=== PATIENT | male | born 1965 | race Caucasian/White ===

== ENCOUNTER 2020-12-29 02:58 | Observation (INO) ==
[2020-12-29 03:36] LABS: Basophils # (auto) 0.03 K/uL (0-0.2); Basophils % (auto) 0.3 %; Eosinophils # (auto) 0.22 K/uL (0-0.5); Eosinophils % (auto) 2.2 %; Hematocrit (blood only) 44.4 % (42-52); Hemoglobin 15.3 g/dL (14.0-18.0); Immature Granulocytes # (auto) 0.03 K/uL (0.00-0.02); Immature Granulocytes % (auto) 0.3 %; Lymphocytes # (auto) 1.92 K/uL (1.2-3.4); Lymphocytes % (auto) 19.6 %; Mean Corpuscular Hgb Conc 34.5 g/dL (32-36); Mean Corpuscular Volume 89.9 fL (80-100); Mean Platelet Volume 10.7 fL (7.4-10.4); Monocytes # (auto) 0.82 K/uL (0.11-0.59); Monocytes % (auto) 8.4 %; Neutrophils # (auto) 6.79 K/uL (1.4-6.5); Neutrophils % (auto) 69.2 %; Platelet Count 249 K/uL (130-400); RDW Coefficient of Variation 12.3 % (11.5-14.5); RDW Standard Deviation 40.5 fL (36.4-46.3); Red Blood Count 4.94 M/uL (4.7-6.1); White Blood Count 9.81 K/uL (4.8-10.8)
[2020-12-29] MEDS ORDERED: ONDANSETRON INJ 2 MG/ML 2 ML VIAL ONE ×2 (03:37→13:13)
[2020-12-29] MEDS ORDERED: MoRPHine SULFATE 4 MG/ML 1 ML CARP\\VIAL IV STA (03:50)
[2020-12-29 03:53] LABS: Albumin Level 3.6 gm/dl (3.4-5.0); BUN Creatinine Ratio 14.7 (10-20); Calcium 8.7 mg/dl (8.5-10.1); Creatinine Clr Calc Pharmacy 77.1 ml/min; Est GFR (African American) 75.8 ml/min; Est GFR (Non-African American) 65.4 ml/min; Potassium 3.8 mmol/L (3.5-5.1)
[2020-12-29 03:56] LABS: Bilirubin,Total 0.4 mg/dl (0.2-1); Globulin 3.7 gm/dl (2.5-4.0); Total Protein 7.3 gm/dl (6.4-8.2)
[2020-12-29] MEDS ORDERED: LACTATED RINGER'S 1,000 ML IV SCH ×2 (06:45→10:09)
--- NOTE | 2020-12-29 06:54 | Emergency Department Note ---
Impression & Plan Acute cholecystitis The patient will be admitted by general surgery for cholecystectomy ED Provider Note NAME: MARITZA RUIZ AGE: 55 SEX: M ARRIVES VIA: Walk-In INFORMANT: Patient and his ED PROVIDER(S): Marley Chang DO CHIEF COMPLAINT: Right upper quadrant pain PLAN: Disposition: Admit to general surgery Condition: Stable MEDICAL DECISION MAKING: This is a 55-year-old male patient who presents to the emergency department complaining of right upper quadrant abdominal pain, nausea and vomiting. Patient has no history of gallstones. He developed significant pain and nausea around 11 PM this evening and upon arrival here in the emergency department bega n to vomit. Ultrasound shows evidence of acute gallbladder wall thickening, pericholecystic fluid and evidence of acute cholecystitis. Patient was given IV analgesia and antiemetics. I discussed the case with Dr. Woods. He will be admitted to the hospital for acute cholecystectomy. Triage Nursing notes reviewed and agree with them. Additional history obtained from Prior medical records reviewed Vital Signs: reviewed and remarkable for hypertension Differential diagnosis: Acute cholecystitis, cholelithiasis, choledocholithiasis, pancreatitis ER treatment provided: IV Zofran IV morphine IV lactated Ringer's Diagnostics interpreted by me: ECG: Normal sinus rhythm at a rate of 89 with a right bundle branch block. There is no ST segment elevation or signs of ischemia. QTC is 462 ms. This is unchanged from December 11. Cardiac Monitoring: Normal sinus rhythm at a rate of 90. Laboratory studies: See below Imaging studies: As per stat read Ultrasound right upper quadrant: Cholelithiasis with mild gallbladder wall thickening measuring 4 mm. Trace pericholecystic fluid. The common bile duct measures 4 mm. Findings are concerning for acute cholecystitis in the appropriate clinical setting. Liver cyst measuring 2.2 x 2.1 x 2.5 cm. Consultation(s): Dr. Woods-General surgery HPI: 55/M arrives for evaluation of right upper quadrant pain. The patient presents to the emergency department complaining of sudden onset of right upper quadrant abdominal pain around 11 PM this evening. Patient has a known history of gallstones. Patient admits that he is not been following a very specific diet. ROS: See above HPI for pertinent positives & negatives. A total of 10 systems reviewed and were otherwise negative. PAST MEDICAL HISTORY:Cough variant asthma; seasonal allergies PAST SURGICAL HISTORY:See Below FAMILY HISTORY:See Below SOCIAL HISTORY:Patient is a primary care physician; he lives with his . HOME MEDICATIONS:See Below ALLERGIES:See Below VITALS:See Below PHYSICAL EXAMINATION: HEENT: Head - normocephalic and atraumatic. Pupils are equal, round, and r eactive to light. Extraocular eye muscles are intact, and sclera are anicteric. Nose - moist nasal mucosa without discharge. Mouth - moist buccal mucosa. Oropharynx is nonerythematous and there is no tonsillar exudate or edema noted. Neck: Supple; no cervical lymphadenopathy Heart: Regular rate and rhythm. There is a normal S1 and S2 with no murmurs, clicks, or gallops appreciated. Lungs: Clear to auscultation bilaterally with no wheezes, rales, or rhonchi. Abdomen: Soft, exquisitely tender to palpation in the right upper quadrant and epigastrium. The abdomen is moderately distended. Hyperactive bowel sounds. There are no palpable pulsatile masses or hepatosplenomegaly. There is no rigidity appreciated. There is slight rebound noted. Extremities: No evidence of cyanosis, clubbing, or edema. There are easily palpable peripheral pulses. Skin: warm and diaphoretic with good turgor and no rashes. ED COURSE: Times/Reassessments: 0330: The patient was evaluated in room before. A complete history and physical was performed. An IV lock was initiated and labs were drawn as above. An order was placed for continuous cardiac monitoring. The patient was in a normal at a rate of 90. The patient was started on a normal saline drip and given 4 mg of IV Zofran for his nausea. He was given IV morphine for his pain. 0445: The patient remained quite uncomfortable on physical exam. He rated his discomfort an 8/10. I offered additional pain medications and anti-nausea medications but he declined. He went for an ultrasound of the right upper quadrant which revealed evidence of acute cholecystitis. I had a lengthy conversation with the patient and his about the results of the ultrasound and planned admission with general surgery. The patient had a twelve-lead EKG as described above. 0635: I discussed the case with Dr. Woods who will admit the patient to the hospital and discuss with Dr. Carroll. Marley Chang, DO Past Med/Surg History Medical History (Updated 12/29/20 @ 11:42 by Keny Coyne MD) Asthma DVT of leg (deep venous thrombosis) Sleep apnea Social History Smoking Status: Never smoker Hx Alcohol Use: No Hx Substance Use: No Preferred Language: Pashto Beliefs That Will Affect Care: Protestant Protestant Beliefs: Oriental Orthodox Current Living Situation: Spouse Feels Safe at Home: Yes Safety Concerns: Feels Safe At This Time Assistive Devices: None Allergies Allergies Allergy/AdvReac Type Severity Reaction Status Date / Time No Known Allergies Allergy Unverified 12/29/20 08:37 Home Meds Home Medications Medication Instructions Recorded Confirmed albuterol sulfate 90 mcg/actuation 2 puff INHALATION Q6H 12/11/20 12/29/20 aerosol inhaler fluticasone furoate 200 1 inh INHALATION DAILY 12/11/20 12/29/20 mcg-vilanterol 25 mcg/dose inhalation powder (Breo Ellipta) aspirin 81 mg tablet 81 mg PO DAILY 12/29/20 12/29/20 Previous Rx's Medication Instructions Recorded oxycodone-acetaminophen 5 mg-325 1 tab PO Q4H PRN #5 tab 12/30/20 mg tablet (Percocet) Results & Data (ED) Vital Signs Vital Signs - 24 hr 12/29/20 03:00 12/29/20 03:13 12/29/20 03:25 Temperature 36.6 C Temperature Source Temporal Artery Scan Pulse Rate 89 85 Pulse Rate [Right Foot] 80 Pulse Rhythm Regular Pulse Rhythm [Right Foot] Regular Pulse Strength Normal Pulse Strength [Right Foot] Normal Respiratory Rate 20 18 24 Respiratory Effort / Characteristics Non-Labored Spontaneous Non-Labored Respiratory Depth Normal Normal Respiratory Pattern Regular Blood Pressure 150/107 H 150/103 H Blood Pressure [Left Arm] 150/103 H Blood Pressure Mean 121 118 Blood Pressure Mean [Left Arm] 118 Blood Pressure Position Sitting Blood Pressure Position [Left Arm] Sitting Pulse Oximetry 98 97 97 Oxygen Delivery Method Room Air Room Air Sepsis Recent Fever Within 48 Hours No Sepsis New/Unexplained Change in Mental Status N/A Sepsis Action Taken by Nursing No Action Required 12/29/20 04:00 Temperature Temperature Source Pulse Rate 92 H Pulse Rate [Right Foot] Pulse Rhythm Pulse Rhythm [Right Foot] Pulse Strength Pulse Strength [Right Foot] Respiratory Rate 19 Respiratory Effort / Characteristics Respiratory Depth Respiratory Pattern Blood Pressure 133/92 Blood Pressure [Left Arm] Blood Pressure Mean 105 Blood Pressure Mean [Left Arm] Blood Pressure Position Blood Pressure Position [Left Arm] Pulse Oximetry 97 Oxygen Delivery Method Sepsis Recent Fever Within 48 Hours Sepsis New/Unexplained Change in Mental Status Sepsis Action Taken by Nursing Laboratory Data Result diagrams: 12/29/20 Unknown 12/29/20 Unknown Lab Results 12/29/20 12/29/20 12/29/20 Range/Units 07:34 07:45 Unknown WBC 9.81 (4.8-10.8) K/uL RBC 4.94 (4.7-6.1) M/uL Hgb 15.3 (14.0-18.0) g/dL Hct 44.4 (42-52) % MCV 89.9 (80-100) fL MCH 31.0 (25-34) pg MCHC 34.5 (32-36) g/dL RDW Std Deviation 40.5 (36.4-46.3) fL RDW Coeff of Mary 12.3 (11.5-14.5) % Plt Count 249 (130-400) K/uL MPV 10.7 H (7.4-10.4) fL Immature Gran % (Auto) 0.3 % Neut % (Auto) 69.2 % Lymph % (Auto) 19.6 % Whitfield % (Auto) 8.4 % Eos % (Auto) 2.2 % Baso % (Auto) 0.3 % Neut # (Auto) 6.79 H (1.4-6.5) K/uL Lymph # (Auto) 1.92 (1.2-3.4) K/uL Whitfield # (Auto) 0.82 H (0.11-0.59) K/uL Eos # (Auto) 0.22 (0-0.5) K/uL Baso # (Auto) 0.03 (0-0.2) K/uL Immature Gran # (Auto) 0.03 H (0.00-0.02) K/uL Sodium (136-145) mmol/L Potassium (3.5-5.1) mmol/L Chloride (98-107) mmol/L Carbon Dioxide (21-32) mmol/L Anion Gap (3-11) BUN (7-18) mg/dl Creatinine (0.6-1.4) mg/dl Est Cr Clr Drug Dosing ml/min Est GFR ( Amer) ml/min Est GFR (Non-Af Amer) ml/min BUN/Creatinine Ratio (10-20) Glucose (70-99) mg/dl Calcium (8.5-10.1) mg/dl Total Bilirubin (0.2-1) mg/dl AST (15-37) U/L ALT (12-78) U/L Alkaline Phosphatase (45-117) U/L Total Protein (6.4-8.2) gm/dl Albumin (3.4-5.0) gm/dl Globulin (2.5-4.0) gm/dl Albumin/Globulin Ratio (0.9-2) Lipase (73-393) U/L Urine Color Yellow Urine Appearance Clear (Clear) Urine pH 5.5 (4.5-7.5) Ur Specific Trent 1.024 (1.000-1.030) Urine Protein Negative (Negative) Urine Glucose (UA) Negative (Negative) Urine Ketones Trace H (Negative) Urine Blood Negative (Negative) Urine Nitrite Negative (Negative) Urine Bilirubin Negative (Negative) Urine Urobilinogen Negative (Negative) Ur Leukocyte Esterase Negative (Negative) COVID-19 Eval Order Covid19 at [facility] 12/29/20 Range/Units Unknown WBC (4.8-10.8) K/uL RBC (4.7-6.1) M/uL Hgb (14.0-18.0) g/dL Hct (42-52) % MCV (80-100) fL MCH (25-34) pg MCHC (32-36) g/dL RDW Std Deviation (36.4-46.3) fL RDW Coeff of Mary (11.5-14.5) % Plt Count (130-400) K/uL MPV (7.4-10.4) fL Immature Gran % (Auto) % Neut % (Auto) % Lymph % (Auto) % Whitfield % (Auto) % Eos % (Auto) % Baso % (Auto) % Neut # (Auto) (1.4-6.5) K/uL Lymph # (Auto) (1.2-3.4) K/uL Whitfield # (Auto) (0.11-0.59) K/uL Eos # (Auto) (0-0.5) K/uL Baso # (Auto) (0-0.2) K/uL Immature Gran # (Auto) (0.00-0.02) K/uL Sodium 140 (136-145) mmol/L Potassium 3.8 (3.5-5.1) mmol/L Chloride 106 (98-107) mmol/L Carbon Dioxide 27 (21-32) mmol/L Anion Gap 7.0 (3-11) BUN 18 (7-18) mg/dl Creatinine 1.22 (0.6-1.4) mg/dl Est Cr Clr Drug Dosing 77.1 ml/min Est GFR ( Amer) 75.8 ml/min Est GFR (Non-Af Amer) 65.4 ml/min BUN/Creatinine Ratio 14.7 (10-20) Glucose 114 H (70-99) mg/dl Calcium 8.7 (8.5-10.1) mg/dl Total Bilirubin 0.4 (0.2-1) mg/dl AST 25 (15-37) U/L ALT 30 (12-78) U/L Alkaline Phosphatase 47 (45-117) U/L Total Protein 7.3 (6.4-8.2) gm/dl Albumin 3.6 (3.4-5.0) gm/dl Globulin 3.7 (2.5-4.0) gm/dl Albumin/Globulin Ratio 1.0 (0.9-2) Lipase 134 (73-393) U/L Urine Color Urine Appearance (Clear) Urine pH (4.5-7.5) Ur Specific Trent (1.000-1.030) Urine Protein (Negative) Urine Glucose (UA) (Negative) Urine Ketones (Negative) Urine Blood (Negative) Urine Nitrite (Negative) Urine Bilirubin (Negative) Urine Urobilinogen (Negative) Ur Leukocyte Esterase (Negative) COVID-19 Eval Order Administered Medications Discontinued Medications Acetaminophen (Acetaminophen 325 Mg Tab) 650 mg PO Q4H PRN PRN Reason: Pain Stop: 01/28/21 23:01 Last Admin: 12/30/20 05:21 Dose: 650 mg Documented by: [id number] Bupivacaine HCl (Bupivacaine 0.25% 30 Ml Vial) Confirm Administered Dose 30 ml .ROUTE .[facility]-MED ONE Stop: 12/29/20 13:11 Last Admin: 12/29/20 14:01 Dose: 30 ml Documented by: [id number] Epinephrine HCl (Epinephrine Inj 1 Mg/Ml Amp) Confirm Administered Dose 1 mg .ROUTE .STK-MED ONE Stop: 12/29/20 13:11 Last Admin: 12/29/20 14:00 Dose: 0.15 mg Documented by: [id number] Lactated Ringer's (Lr) 1,000 mls @ 125 mls/hr IV .Q8H [facility] Stop: 01/28/21 06:44 Last Infusion: 12/29/20 10:30 Dose: 0 mls/hr Documented by: [id number] Admin: 12/29/20 07:36 Dose: 125 mls/hr Documented by: [id number] Lactated Ringer's (Lr) 1,000 mls @ 100 mls/hr IV .Q10H [facility] Stop: 01/28/21 10:08 Last Infusion: 12/29/20 16:36 Dose: 0 mls/hr Documented by: [id number] Admin: 12/29/20 10:44 Dose: 100 mls/hr Documented by: [id number] Ampicillin Sodium/Sulbactam Sodium 3,000 mg/ Sodium Chloride 108 mls @ 200 mls/hr IV Q6H [facility]; Protocol Stop: 01/08/21 10:29 Last Infusion: 12/30/20 11:20 Dose: 0 mls/hr Documented by: [id number] Admin: 12/30/20 10:36 Dose: 200 mls/hr Documented by: [id number] Infusion: 12/30/20 05:54 Dose: 0 mls/hr Documented by: [id number] Admin: 12/30/20 05:21 Dose: 200 mls/hr Documented by: [id number] Infusion: 12/29/20 23:04 Dose: 0 mls/hr Documented by: [id number] Admin: 12/29/20 22:31 Dose: 200 mls/hr Documented by: [id number] Infusion: 12/29/20 17:11 Dose: 0 mls/hr Documented by: [id number] Admin: 12/29/20 16:38 Dose: 200 mls/hr Documented by: [id number] Infusion: 12/29/20 11:17 Dose: 0 mls/hr Documented by: [id number] Admin: 12/29/20 10:44 Dose: 200 mls/hr Documented by: [id number] Morphine Sulfate (Morphine Sulfate 4 Mg/Ml 1 Ml Carp\Vial) 4 mg IV NOW STA Stop: 12/29/20 03:51 Last Admin: 12/29/20 03:56 Dose: 4 mg Documented by: [id number] Ondansetron HCl (Ondansetron Inj 2 Mg/Ml 2 Ml Vial) Confirm Administered Dose 4 mg .ROUTE .STK-MED ONE Stop: 12/29/20 03:38 Last Admin: 12/29/20 03:41 Dose: 4 mg Documented by: [id number] Imaging Data Radiologist's Impression: Gallbladder Ultrasound 12/29/20 03:51 ULTRASOUND RIGHT UPPER QUADRANT ABDOMEN CLINICAL HISTORY: Vomiting. Right upper quadrant abdominal pain. COMPARISON STUDY: Abdominal ultrasound dated 12/11/2020 TECHNIQUE: Real-time, grayscale, and color flow sonography of the right upper quadrant of the abdomen was performed. Images are reviewed in the transverse and longitudinal planes. FINDINGS: Liver: The liver is normal in size and echotexture. There is no intrahepatic biliary ductal dilatation. The main portal vein is patent. A 2.5 cm hepatic cyst is incidentally noted. Gallbladder: There is a 2 cm shadowing calculus in the region of the gallbladder neck as well as additional smaller stones and biliary sludge. The gallbladder is distended. The gallbladder wall appears thickened and edematous, measuring up to 4 mm. There is trace pericholecystic fluid. A sonographic Trevino's sign is equivocal. Foci of adenomyomatosis are noted. The common bile duct measures up to 0.5 cm in diameter. Pancreas: Visualized portions of the pancreatic head are normal in appearance. The majority of the pancreas was not visualized due to overlying bowel gas. Right kidney: Survey images of the right kidney demonstrate normal size and echotexture. There is no hydronephrosis. Ascites: None. IMPRESSION: Cholelithiasis and biliary sludge with sonographic evidence of acute cholecystitis. Surgical consultation is advised. ACT 112: Negative or not required by law. Electronically signed by: Joel Yanez M.D. 12/29/2020 7:14 AM Chest X-Ray 12/29/20 06:44 SINGLE VIEW CHEST CLINICAL HISTORY: Right upper quadrant abdominal pain. Acute cholecystitis. Preoperative assessment. FINDINGS: An AP, portable, upright chest radiograph is obtained. No prior studies are available for comparison at the time of dictation. The cardiomediastinal silhouette is unremarkable. The lungs and pleural spaces are clear. No pneumothorax is seen. The bony thorax is grossly intact. IMPRESSION: No active disease in the chest. ACT 112: Negative or not required by law. Electronically signed by: Joel Yanez M.D. 12/29/2020 7:48 AM Discharge Plan Visit Data Chief Complaint: Abdominal Pain Stated Complaint: ABD PAIN,NAUSEA,GALL STONES ED Provider: Marley Chang Discharge Problem: Acute cholecystitis Patient Disposition: Admitted As Inpatient Discharge Instructions Interventions: ED Discharge Assessment Last Done: 12/29/20 09:48
--- NOTE | 2020-12-29 07:15 | Ultrasound Report ---
ULTRASOUND RIGHT UPPER QUADRANT ABDOMEN CLINICAL HISTORY: Vomiting. Right upper quadrant abdominal pain. COMPARISON STUDY: Abdominal ultrasound dated 12/11/2020 TECHNIQUE: Real-time, grayscale, and color flow sonography of the right upper quadrant of the abdomen was performed. Images are reviewed in the transverse and longitudinal planes. FINDINGS: Liver: The liver is normal in size and echotexture. There is no intrahepatic biliary ductal dilatatio n. The main portal vein is patent. A 2.5 cm hepatic cyst is incidentally noted. Gallbladder: There is a 2 cm shadowing calculus in the region of the gallbladder neck as well as brittney tional smaller stones and biliary sludge. The gallbladder is distended. The gallbladder wall appears thickened and edematous, measuring up to 4 mm. There is trace pericholecystic fluid. A sonographic Mu rphy's sign is equivocal. Foci of adenomyomatosis are noted. The common bile duct measures up to 0.5 cm in diameter. Pancreas: Visualized portions of the pancreatic head are normal in appearance. The majority of the pa ncreas was not visualized due to overlying bowel gas. Right kidney: Survey images of the right kidney demonstrate normal size and echotexture. There is no hydronephrosis. Ascites: None. IMPRESSION: Cholelithiasis and biliary sludge with sonographic evidence of acute cholecystitis. Surgi terry consultation is advised. ACT 112: Negative or not required by law. Electronically signed by: Joel Yanez M.D. 12/29/2020 7:14 AM
--- NOTE | 2020-12-29 07:50 | XRay Report ---
SINGLE VIEW CHEST CLINICAL HISTORY: Right upper quadrant abdominal pain. Acute cholecystitis. Preoperative assessment. FINDINGS: An AP, portable, upright chest radiograph is obtained. No prior studies are available for c omparison at the time of dictation. The cardiomediastinal silhouette is unremarkable. The lungs and pleural spaces are clear. No pneumothorax is seen. The bony thorax is grossly intact. IMPRESSION: No active disease in the chest. ACT 112: Negative or not required by law. Electronically signed by: Joel Yanez M.D. 12/29/2020 7:48 AM
[2020-12-29 08:03] LABS: Appearance Urine Clear (Clear); Bilirubin Urine Negative (Negative); Blood Urine Negative (Negative); Color Urine Yellow; Glucose Urine UA Negative (Negative); Ketones Urine Trace (Negative); Leukocyte Esterase Urine Negative (Negative); Nitrite Urine Negative (Negative); Protein Urine Negative (Negative); Specific Gravity Urine 1.024 (1.000-1.030); Urobilinogen Urine Negative (Negative); pH Urine 5.5 (4.5-7.5)
--- NOTE | 2020-12-29 09:52 | History & Physical Report ---
Date of Service December 29, 2020 Assessment & Plan (1) Acute cholecystitis: Plan: Acute calculous cholecystitis 55 year-old male with sudden RUQ abdominal pain, bloating, nausea, and vomiting begging last evening. History of similar attacks and was scheduled for elective cholecystectomy with Dr. Nixon in January. NO leukocytosis. T. bili and lfts wnl. US showing stone at gallbladder neck with gallbladder wall thickening. Plan: Dr. Carroll discussed ultrasound findings with patient and given recurrent attacks recommend cholecystectomy. Discussed laparoscopic approach, risks including but no limited to bleeding, infection, bile duct injury, bile leak, injury to surrounding organs/tissues, blood clots. Discussed expected recovery and restrictions. Informed consent obtained for laparoscopic cholecystectomy today keep NPO will order SCDs given history of DVT expected postop stay overnight and likely home tomorrow Dr. Carroll has seen and examined patient, please see addendum for further recommendations/plan. History of Present Illness Chief Complaint: Abdominal pain, nausea, and vomiting Primary Care Provider: DO Dr. Timothy Mccoy presented to emergency department last evening with complaint of sudden RUQ abdominal pain with associated nausea and vomiting. He states he has had similar episodes of RUQ abdominal pain in the past and was in the emergency room in October and saw Dr. Nixon in the office and scheduled for elective laparoscopic cholecystectomy January 23. He states the pain was sudden last evening with associated nausea and bloating with belching and flatus. 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 History of sleep apnea but not on cpap and also history of asthmas with a chronic cough. No abdominal surgeries. No current blood thinning agents other than 81 mg of aspirin daily. Family history of DVT in sister ( control and smoker) and Father (postop setting). Allergies Allergy/AdvReac Type Severity Reaction Status Date / Time No Known Allergies Allergy Unverified 12/29/20 08:37 Home Medications Medication Instructions Recorded Confirmed Type albuterol sulfate 90 mcg/actuation 2 puff INHALATION Q6H 12/11/20 12/29/20 History aerosol inhaler fluticasone furoate 200 1 inh INHALATION DAILY 12/11/20 12/29/20 History mcg-vilanterol 25 mcg/dose inhalation powder (Breo Ellipta) aspirin 81 mg tablet 81 mg PO DAILY 12/29/20 12/29/20 History Past Med/Surg History Medical History (Updated 12/29/20 @ 11:42 by Keny Coyne MD) Asthma DVT of leg (deep venous thrombosis) Sleep apnea Social History Smoking Status: Never smoker Hx Alcohol Use: No Hx Substance Use: No Preferred Language: Irish Beliefs That Will Affect Care: Samaritan Samaritan Beliefs: Presybeterian Current Living Situation: Spouse Feels Safe at Home: Yes Safety Concerns: Feels Safe At This Time Assistive Devices: Glasses Review of Systems Review of Systems: All systems reviewed & are unremarkable except as noted in HPI & below Physical Exam Constitutional: well developed and well nourished; no acute distress and not ill appearing Respiratory: normal respiratory effort, lungs clear to auscultation Cardiovascular: RRR, no murmur, no edema Gastrointestinal (Abdomen): Inspection/Auscultation: abdomen normal to inspection; abdomen not distended Percussion/Palpation: + abdomen tender (R UQ) and abdomen soft; no guarding and abdomen not rigid Skin: no rashes, warm and dry Psychiatric: A+Ox3, euthymic affect Results & Data Results & Data ([facility]) Vital Signs (Past 12 Hours) Vital Signs Temp Pulse Pulse Resp BP BP Pulse Ox 12/29/20 09:48 91 H 18 124/73 95 12/29/20 04:00 92 H 19 133/92 97 12/29/20 03:25 85 24 150/103 H 97 12/29/20 03:13 80 18 150/103 H 97 12/29/20 03:00 36.6 C 89 20 150/107 H 98 Laboratory Results 12/29/20 12/29/20 12/29/20 Range/Units Unknown Unknown 07:45 WBC 9.81 (4.8-10.8) K/uL RBC 4.94 (4.7-6.1) M/uL Hgb 15.3 (14.0-18.0) g/dL Hct 44.4 (42-52) % MCV 89.9 (80-100) fL MCH 31.0 (25-34) pg MCHC 34.5 (32-36) g/dL RDW Std Deviation 40.5 (36.4-46.3) fL RDW Coeff of Amry 12.3 (11.5-14.5) % Plt Count 249 (130-400) K/uL MPV 10.7 H (7.4-10.4) fL Immature Gran % (Auto) 0.3 % Neut % (Auto) 69.2 % Lymph % (Auto) 19.6 % Osborne % (Auto) 8.4 % Eos % (Auto) 2.2 % Baso % (Auto) 0.3 % Neut # (Auto) 6.79 H (1.4-6.5) K/uL Lymph # (Auto) 1.92 (1.2-3.4) K/uL Osborne # (Auto) 0.82 H (0.11-0.59) K/uL Eos # (Auto) 0.22 (0-0.5) K/uL Baso # (Auto) 0.03 (0-0.2) K/uL Immature Gran # (Auto) 0.03 H (0.00-0.02) K/uL Sodium 140 (136-145) mmol/L Potassium 3.8 (3.5-5.1) mmol/L Chloride 106 (98-107) mmol/L Carbon Dioxide 27 (21-32) mmol/L Anion Gap 7.0 (3-11) BUN 18 (7-18) mg/dl Creatinine 1.22 (0.6-1.4) mg/dl Est Cr Clr Drug Dosing 77.1 ml/min Est GFR ( Amer) 75.8 ml/min Est GFR (Non-Af Amer) 65.4 ml/min BUN/Creatinine Ratio 14.7 (10-20) Glucose 114 H (70-99) mg/dl Calcium 8.7 (8.5-10.1) mg/dl Total Bilirubin 0.4 (0.2-1) mg/dl AST 25 (15-37) U/L ALT 30 (12-78) U/L Alkaline Phosphatase 47 (45-117) U/L Total Protein 7.3 (6.4-8.2) gm/dl Albumin 3.6 (3.4-5.0) gm/dl Globulin 3.7 (2.5-4.0) gm/dl Albumin/Globulin Ratio 1.0 (0.9-2) Lipase 134 (73-393) U/L Urine Color Yellow Urine Appearance Clear (Clear) Urine pH 5.5 (4.5-7.5) Ur Specific [place] 1.024 (1.000-1.030) Urine Protein Negative (Negative) Urine Glucose (UA) Negative (Negative) Urine Ketones Trace H (Negative) Urine Blood Negative (Negative) Urine Nitrite Negative (Negative) Urine Bilirubin Negative (Negative) Urine Urobilinogen Negative (Negative) Ur Leukocyte Esterase Negative (Negative) COVID-19 Eval Order SARS-CoV-2 (PCR) (Negative) 12/29/20 12/29/20 Range/Units 07:34 07:34 WBC (4.8-10.8) K/uL RBC (4.7-6.1) M/uL Hgb (14.0-18.0) g/dL Hct (42-52) % MCV (80-100) fL MCH (25-34) pg MCHC (32-36) g/dL RDW Std Deviation (36.4-46.3) fL RDW Coeff of Mary (11.5-14.5) % Plt Count (130-400) K/uL MPV (7.4-10.4) fL Immature Gran % (Auto) % Neut % (Auto) % Lymph % (Auto) % Osborne % (Auto) % Eos % (Auto) % Baso % (Auto) % Neut # (Auto) (1.4-6.5) K/uL Lymph # (Auto) (1.2-3.4) K/uL Osborne # (Auto) (0.11-0.59) K/uL Eos # (Auto) (0-0.5) K/uL Baso # (Auto) (0-0.2) K/uL Immature Gran # (Auto) (0.00-0.02) K/uL Sodium (136-145) mmol/L Potassium (3.5-5.1) mmol/L Chloride (98-107) mmol/L Carbon Dioxide (21-32) mmol/L Anion Gap (3-11) BUN (7-18) mg/dl Creatinine (0.6-1.4) mg/dl Est Cr Clr Drug Dosing ml/min Est GFR ( Amer) ml/min Est GFR (Non-Af Amer) ml/min BUN/Creatinine Ratio (10-20) Glucose (70-99) mg/dl Calcium (8.5-10.1) mg/dl Total Bilirubin (0.2-1) mg/dl AST (15-37) U/L ALT (12-78) U/L Alkaline Phosphatase (45-117) U/L Total Protein (6.4-8.2) gm/dl Albumin (3.4-5.0) gm/dl Globulin (2.5-4.0) gm/dl Albumin/Globulin Ratio (0.9-2) Lipase (73-393) U/L Urine Color Urine Appearance (Clear) Urine pH (4.5-7.5) Ur Specific [place] (1.000-1.030) Urine Protein (Negative) Urine Glucose (UA) (Negative) Urine Ketones (Negative) Urine Blood (Negative) Urine Nitrite (Negative) Urine Bilirubin (Negative) Urine Urobilinogen (Negative) Ur Leukocyte Esterase (Negative) COVID-19 Eval Order Covid19 at [facility] SARS-CoV-2 (PCR) NEGATIVE (Negative) Diagnostic Findings ULTRASOUND RIGHT UPPER QUADRANT ABDOMEN CLINICAL HISTORY: Vomiting. Right upper quadrant abdominal pain. COMPARISON STUDY: Abdominal ultrasound dated 12/11/2020 TECHNIQUE: Real-time, grayscale, and color flow sonography of the right upper quadrant of the abdomen was performed. Images are reviewed in the transverse and longitudinal planes. FINDINGS: Liver: The liver is normal in size and echotexture. There is no intrahepatic biliary ductal dilatation. The main portal vein is patent. A 2.5 cm hepatic cyst is incidentally noted. Gallbladder: There is a 2 cm shadowing calculus in the region of the gallbladder neck as well as additional smaller stones and biliary sludge. The gallbladder is distended. The gallbladder wall appears thickened and edematous, measuring up to 4 mm. There is trace pericholecystic fluid. A sonographic Trevino's sign is equivocal. Foci of adenomyomatosis are noted. The common bile duct measures up to 0.5 cm in diameter. Pancreas: Visualized portions of the pancreatic head are normal in appearance. The majority of the pancreas was not visualized due to overlying bowel gas. Right kidney: Survey images of the right kidney demonstrate normal size and echotexture. There is no hydronephrosis. Ascites: None. IMPRESSION: Cholelithiasis and biliary sludge with sonographic evidence of acute cholecystitis. Surgical consultation is advised. Code Status & VTE Plan VTE Prophylaxis Plan VTE Prophylaxis will be ordered: Yes Supervising Physician Co-Signing Physician Notes I saw and examined the patient with Pricila Hyatt PA-C, and agree with her assessment and plan. 55-year-old gentleman with acute cholecystitis, we will take him to the operating room for laparoscopic cholecystectomy at the earliest convenience.
[2020-12-29] MEDS ORDERED: MoRPHine SULFATE 4 MG/ML 1 ML CARP\\VIAL IV PRN (10:09)
[2020-12-29] MEDS ORDERED: ONDANSETRON INJ 2 MG/ML 2 ML VIAL IV PRN ×2 (10:09→11:40)
[2020-12-29] MEDS ORDERED: MoRPHine SULFATE 2 MG/ML CARP IV PRN (10:09)
[2020-12-29] MEDS ORDERED: oxyCODONE/ACETAMINOPHEN 5mg/325mg TAB PO PRN ×2 (10:09)
[2020-12-29] MEDS: AMPICILLIN/SULBACTAM SOD 3,000 MG in 0.9 % SODIUM CHLORIDE 100 ML IV SCH ×3 (10:44→22:31)
[2020-12-29] MEDS ORDERED: ATROPINE SULFATE 0.1 MG/ML 10ML SYR IV PRN (11:40)
[2020-12-29] MEDS ORDERED: ePHEDrine sulfate 50 MG/ML AMP IV PRN (11:40)
[2020-12-29] MEDS ORDERED: fentaNYL citrate 100 MCG/2 ML VIAL IV PRN (11:40)
--- NOTE | 2020-12-29 11:42 | Anesthesiology Consultation ---
Date of Service December 29, 2020 Assessment & Plan (1) Encounter for pre-operative examination: Chart Review Chart Review: Acceptable Risk for Surgery and Patient NOT seen in Pre Admission Testing Consults Requested none ASA ASA2 Proposed Anesthesia Anesthesia Type: General Risk / Benefits Reviewed With: PT / POA / Parent / Guardian, Accepts Plan and Informed Consent Obtained History Surgery Operation Date: 12/29/20 08:20 Proposed Procedures p Laparoscopic Cholecystectomy, Possible Cholangiogram - Robinson Carroll MD Height/Weight Height: 5 ft 9 in Weight: 98 kg Allergies Allergy/AdvReac Type Severity Reaction Status Date / Time No Known Allergies Allergy Unverified 12/29/20 08:37 Medications Home Medications Medication Instructions Recorded Confirmed Last Taken albuterol sulfate 90 mcg/actuation 2 puff INHALATION Q6H 12/11/20 12/29/20 Unknown aerosol inhaler fluticasone furoate 200 1 inh INHALATION DAILY 12/11/20 12/29/20 Unknown mcg-vilanterol 25 mcg/dose inhalation powder (Breo Ellipta) aspirin 81 mg tablet 81 mg PO DAILY 12/29/20 12/29/20 Unknown Active Medications Generic Name Dose Route Start Last Admin Trade Name Freq PRN Reason Stop Dose Admin Lactated Ringer's 1,000 mls @ 100 mls/hr 12/29/20 10:09 12/29/20 10:44 Lr IV 01/28/21 10:08 100 mls/hr .Q10H ALEX Administration Ampicillin Sodium/Sulbactam 108 mls @ 200 mls/hr 12/29/20 10:30 12/29/20 10:44 Sodium 3,000 mg/ Sodium IV 01/08/21 10:29 200 mls/hr Chloride Q6H ALEX Administration Protocol NPO Date Last Intake of Fluids: 12/29/20 Time Last Intake of Fluids: 02:00 Last Intake of Fluids Comment: Water Date Last Intake of Solids: 12/29/20 Time Last Intake of Solids: 00:00 Last Intake of Solids Comment: Piece of toast Past Medical History Medical History (Updated 12/29/20 @ 11:42 by Keny Coyne MD) Asthma DVT of leg (deep venous thrombosis) Sleep apnea Exercise / Class Metabolic Activity II 4-5 Yardwork/Stairs/Walk up hill Past Anesthesia History No Hx of Anesthesia Complications and No Family Hx of Anesthesia Complications History of PONV No Hx of PONV and No Hx of Motion Sickness Social History Smoking Status: Never smoker Hx Alcohol Use: No Hx Substance Use: No Physical Exam Vital Signs Last Vital Signs Temp 36.8 C 12/29/20 10:11 Pulse 76 12/29/20 10:11 Resp 18 12/29/20 10:11 BP 125/79 12/29/20 10:11 Pulse Ox 97 12/29/20 10:11 ENMT Mouth: no dentition abnormality Thyromental Distance: > or= 3.5 Finger Breadths Mallampati Class: II Neck normal visual inspection Respiratory normal respiratory effort Auscultation: lungs clear to auscultation bilaterally Cardiovascular Rate/Rhythm: regular rate and regular rhythm Psychiatric Orientation: alert Testing Laboratory Results 12/29/20 Unknown 12/29/20 Unknown Urine Color Yellow 12/29/20 07:45 Urine Appearance Clear (Clear) 12/29/20 07:45 Urine pH 5.5 (4.5-7.5) 12/29/20 07:45 Ur Specific [place] 1.024 (1.000-1.030) 12/29/20 07:45 Urine Protein Negative (Negative) 12/29/20 07:45 Urine Glucose (UA) Negative (Negative) 12/29/20 07:45 Urine Ketones Trace (Negative) H 12/29/20 07:45 Urine Nitrite Negative (Negative) 12/29/20 07:45 Ur Leukocyte Esterase Negative (Negative) 12/29/20 07:45
[2020-12-29] MEDS ORDERED: EPINEPHrine INJ 1 MG/ML AMP ONE (13:10)
[2020-12-29] MEDS ORDERED: BUPIVACAINE 0.25% 30 ML VIAL ONE (13:10)
[2020-12-29] MEDS ORDERED: DEXAMETHASONE SOD INJ 4 MG/ML VIAL ONE ×2 (13:13→13:39)
[2020-12-29] MEDS ORDERED: ROCURONIUM BROMIDE 10 MG/ML 5 ML VIAL IV ONE (13:13)
[2020-12-29] MEDS ORDERED: PROPOFOL IV EMULSION 10 MG/ML 20 ML VIAL IV ONE ×2 (13:13→14:02)
[2020-12-29] MEDS ORDERED: LIDOCAINE 2% 2 ML VIAL/AMP(20MG/ML) INFIL ONE (13:13)
[2020-12-29] MEDS ORDERED: fentaNYL citrate 100 MCG/2 ML VIAL ONE ×2 (13:14→14:19)
[2020-12-29] MEDS ORDERED: MIDAZOLAM HCL 1 MG/ML 2ML VIAL ONE (13:14)
[2020-12-29] MEDS ORDERED: NEOSTIGMINE METHYLSULFATE 1 MG/ML 10ML VIAL ONE (13:46)
[2020-12-29] MEDS ORDERED: GLYCOPYRROLATE 0.2 MG/ML VIAL ONE (13:46)
[2020-12-29] MEDS ORDERED: ACETAMINOPHEN 1000 MG/100 ML IV IV ONE (13:48)
--- NOTE | 2020-12-29 14:36 | Post Operative Brief Note ---
Immediate Post Op Note v1 Date of Surgery December 29, 2020 Pre & Post Diagnosis Operation Date: 12/29/20 08:20 Pre-Op Diagnosis: Acute Cholecystitis Post-Op Diagnosis: Acute Cholecystitis I identified the patient and participated in the time-out.: Yes Procedure Operation Date: 12/29/20 08:20 Actual Procedures p Laparoscopic Cholecystectomy(Not Applicable) - Robinson Carroll MD Surgeon Robinson Carroll MD Back Shoe Operator JAMIA Hyatt assisted with tissue retraction; camera op; closing Estimated Blood Loss 5 Findings Consistent with Post-Op Diagnosis
--- NOTE | 2020-12-29 14:38 | Operative Report ---
Post Operative Report Pre & Post Diagnosis Operation Date: 12/29/20 08:20 Pre-Op Diagnosis: Acute Cholecystitis Post-Op Diagnosis: Acute Cholecystitis I identified the patient and participated in the time-out.: Yes Procedure Operation Date: 12/29/20 08:20 Actual Procedures p Laparoscopic Cholecystectomy(Not Applicable) - Robinson Carroll MD Surgeon Robinson Carroll MD Hvac Manager JAMIA Hyatt assisted with tissue retraction; camera op; closing Estimated Blood Loss 5 Findings Consistent with Post-Op Diagnosis Acute cholecystitis with severe inflammation Specimens Gallbladder Anesthesia Type General Complications No immediate complications Indications Acute cholecystitis Description of Procedure The patient was taken to the operating room, and placed supine on the operating table. A timeout was performed, perioperative antibiotics were administered, SCD boots were placed. After adequate anesthesia and analgesia was obtained, the abdomen was prepped and draped in the normal sterile fashion. Local anesthetic was injected into and around the proposed incision sites. An incision was made with a 15 blade scalpel in the supraumbilical region and carried down to the level of the fascia. The fascia was grasped with a trach hook, and a varies needle was used to enter the abdominal cavity. The abdomen was insufflated to a pressure of 15 mmHg, and a 11 mm trocar was placed in this location. A 10 mm, 30 degree laparoscope was placed into the abdominal cavity, and the abdomen was surveyed. There was a significant amount of acute inflammation and edema in the right upper quadrant. The gallbladder was distended, taut. Two 5 mm trochars were placed along the right costal margin, and one 5 mm trocar was placed in the subxiphoid region under direct visualization. An 18-gauge aspiration needle was used to drain the gallbladder of its contents. The gallbladder was grasped and retracted cephalad and laterally, exposing the triangle of Calot. Dissection began in the triangle with a combination of blunt dissection with the [place] dissector, and judicious use of the hook cautery. The cystic duct and cystic artery were dissected free circumferentially, and a critical view of safety was obtained. The cystic duct and cystic artery were clipped and transected, and the gallbladder was removed from the gallbladder fossa with the hook cautery. The camera was switched to a 5 mm, the gallbladder was placed in an Endo Catch bag, and removed via the supraumbilical port site. The camera was switched back to the 10 mm camera, and the abdomen was surveyed again. Hemostasis was checked and attended, and was excellent. The abdomen was copiously irrigated and suctioned free. Again hemostasis was checked and was excellent. All trochars were removed under direct visualization. The abdomen was desufflated. The fascia in the 11 mm port site was closed with a 0 Vicryl suture. The skin was closed with a running 4-0 Monocryl subcuticular stitch. Dermabond was applied. The patient tolerated the procedure without complication, and was transferred in stable condition to the PACU. All instrument, needle, and sponge counts were correct at the end of the case. I attest to the content of the Intraoperative Record and any orders documented therein. Any exceptions are noted below.
--- NOTE | 2020-12-29 15:41 | Anesthesiology Progress Note ---
Date of Service December 29, 2020 Anesthesia Post Procedure Vital Signs Vital Signs: Temp Pulse Pulse Pulse Pulse Resp BP 12/29/20 15:20 84 18 12/29/20 15:10 85 16 12/29/20 15:00 81 21 12/29/20 14:53 36.7 C 121 H 22 12/29/20 11:33 37 C 81 20 12/29/20 10:11 36.8 C 76 18 12/29/20 09:48 91 H 18 124/73 12/29/20 04:00 92 H 19 133/92 12/29/20 03:25 85 24 150/103 H 12/29/20 03:13 80 18 12/29/20 03:00 36.6 C 89 20 150/107 H BP Pulse Ox 12/29/20 15:20 144/91 H 98 12/29/20 15:10 145/95 H 92 12/29/20 15:00 130/84 85 L 12/29/20 14:53 149/92 H 95 12/29/20 11:33 134/81 96 12/29/20 10:11 125/79 97 12/29/20 09:48 95 12/29/20 04:00 97 12/29/20 03:25 97 12/29/20 03:13 150/103 H 97 12/29/20 03:00 98 Pain Intensity Bilateral Upper Abdomen: Pain Intensity: 0 Transfer of Care Handoff Completed per policy Notes Mental Status: alert / awake / arousable Patient Amnestic to Procedure: Yes Nausea / Vomiting: adequately controlled Pain: adequately controlled Airway Patency, RR, SpO2: stable & adequate BP & HR: stable & adequate Hydration State: stable & adequate Anesthetic Complications: no major complications apparent
[2020-12-29] MEDS ORDERED: ACETAMINOPHEN 325 MG TAB PO PRN (23:02)
[2020-12-29] MEDS ORDERED: IBUPROFEN 800 MG TAB PO PRN (23:03)
[2020-12-30] MEDS: AMPICILLIN/SULBACTAM SOD 3,000 MG in 0.9 % SODIUM CHLORIDE 100 ML IV SCH ×2 (05:21→10:36)
--- NOTE | 2020-12-30 06:44 | Electrocardiogram Report ---
Test Reason : Blood Pressure : / mmHG Vent. Rate : 089 BPM Atrial Rate : 089 BPM P-R Int : 160 ms QRS Dur : 120 ms QT Int : 380 ms P-R-T Axes : 054 059 039 degrees QTc Int : 462 ms Normal sinus rhythm Right bundle branch block Abnormal ECG When compared with ECG of 11-DEC-2020 07:42, QT has lengthened Confirmed by Fredrick Miller ([id number]) on 12/30/2020 6:43:53 AM Referred By: REFERRED SELF Confirmed By:Fredrick Miller
--- NOTE | 2020-12-30 08:28 | Surgery Progress Note ---
Date of Service December 30, 2020 Assessment & Plan (1) Acute cholecystitis: Plan: POD # 1 s/p laparoscopic cholecystectomy -afebrile, vss - postop pain moderate, controlled with Tylenol - nausea resolved Plan: Continue reg diet Continue PO Tylenol, Ibuprofen, Percocet prn pain incentive spirometry ambulate likely discharge later this am , early afternoon Discussed with Dr. Carroll who is to evaluate patient later today Admission and Anticipated Discharge Date Admission Date: December 29, 2020 Subjective having some RUQ abdominal crampy pain nausea resolved no appetite last night so did not eat dinner, just drank water no chest pain or shortness of breath urinating without difficulty ambulating to bathroom Physical Exam Constitutional: WD/WN, vitals as above Respiratory: normal respiratory effort; no respiratory distress and no labored breathing Gastrointestinal (Abdomen): Inspection/Auscultation: abdomen normal to inspection and normal bowel sounds; abdomen not distended Percussion/Palpation: + abdomen tender (RUQ) and abdomen soft; no guarding and abdomen not rigid Skin: no rashes, warm and dry + incision (clean,dry, intact with dermabond present) Psychiatric: Orientation: alert and oriented x 3 Results & Data ([facility]) Vital Signs (Past 12 Hours) Vital Signs Temp Pulse Resp BP Pulse Ox 12/30/20 07:54 36.8 C 91 H 16 125/78 94 12/30/20 02:23 36.8 C 95 H 15 117/79 93 12/29/20 22:33 36.8 C 92 H 15 125/80 94
--- NOTE | 2021-01-01 12:50 | Discharge Summary ---
Date of Service January 01, 2021 Admission HPI Per Admitting Provider Dr. Aguirre presented to emergency department last evening with complaint of sudden RUQ abdominal pain with associated nausea and vomiting. He states he has had similar episodes of RUQ abdominal pain in the past and was in the emergency room in October and saw Dr. Nixon in the office and scheduled for elective laparoscopic cholecystectomy January 23. He states the pain was sudden last evening with associated nausea and bloating with belching and flatus. 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 History of sleep apnea but not on cpap and also history of asthmas with a chronic cough. No abdominal surgeries. No current blood thinning agents other than 81 mg of aspirin daily. Family history of DVT in sister ( control and smoker) and Father (postop setting). Principal Diagnosis Acute Calculous Cholecystitis Discharge Data Allergies Allergy/AdvReac Type Severity Reaction Status Date / Time No Known Allergies Allergy Unverified 12/29/20 08:37 Consultations 12/29/20 06:46 ED Decision to Admit Stat Procedures Performed Operation Date: 12/29/20 08:20 Actual Procedures p Laparoscopic Cholecystectomy(Not Applicable) - Robinson Carroll MD Ordered Studies 12/29/20 03:51 US gallbladder Urgent Hospital Course (1) Acute cholecystitis: Patient was taken to operating room for laparoscopic cholecystectomy by Marisa Carroll. Patient found to have acute cholecystitis without perforation or abscess. Patient tolerated procedure well and was transferred to recovery and then to medical/surgical floor for postop care. IV fluids and IV antibiotics were continued. Diet advanced to regular diet. IV morphine with PO Percocet and Tylenol as needed for pain. Activity as tolerated. SCDs for DVT prophylaxis ordered given history of DVT in lower extremity. POD # 1 , afebrile, vitals stable. pain controlled with oral Tylenol. No nausea or vomiting but low appetite in evening after surgery. Patient was able to eat breakfast and pain controlled. He was discharged home on POD # 1 in stable condition. Total Time Total Time Spent Total Time Spent (In Minutes): 30 Total Time Includes: Examination of the Patient, Discharge Planning and Medication Reconciliation Discharge Plan Discharge Items Patient Disposition: Home - Self-Care Reason For Visit: ACUTE CHOLECYSTITIS Discharge Diagnosis: Acute calculous cholecystitis Activity: Per Instructions section Non-emergency contact: Surgeon Call non-emergency contact if: you have any medication questions, your pain is worsening, your pain is concerning for you, you have a fever, your temperature is above 101, your wound has increased redness, your wound has increased dean inage and your wound pain has increased Follow-up/Referrals: Norma Nava DO [Primary Care Provider] - Diet: Regular Addtl Attending Provider Instructions: Post-Surgical ~Discharge Instructions Activity Recommendations: - lifting limitation: (20 pounds for 2 weeks), - exercise/sex/sports limit: (nonstrenuous for 2 weeks), - driving or machine use limit: (none for 1 week or until pain free and no longer taking narcotic pain medication), - Shower/bathe limit: (may shower beginning tonight) Diet: - Resume previous diet SPECIAL CARE INSTRUCTIONS: - May shower. Let water run over area and pat dry. Do not submerge incisions underwater (bathing, swimming, hot tubs) for 2 weeks - Surgical glue will fall off on its own. - Call the surgeon's office with any questions or concerns - - (ex. temperature higher than 101 degrees F, excessive bleeding or pain). MEDICATIONS: - Resume previous medications unless instructed otherwise by your surgeon. - May alternate extra strength Tylenol and Ibuprofen as needed for mild pain - Percocet 1 every 4 hours, as needed for moderate to severe pain FOLLOW UP VISIT: - If not already scheduled, please call the office to schedule a two week follow-up appointment. Office number Pending Studies at Discharge: Yes (Gallbladder pathology) Stand-Alone Forms: My [facility] [employer], Opioid Pain Management, Smoking Cessation Medications and DC Order Prescriptions: New oxycodone-acetaminophen [Percocet] 5-325 mg tablet 1 tab PO Q4H PRN (Reason: pain) Qty: 5 RF: 0 Continued albuterol sulfate 90 mcg/actuation HFA aerosol inhaler 2 puff INHALATION Q6H RF: 0 Breo Ellipta 200-25 mcg/dose blister with device 1 inh INHALATION DAILY RF: 0 aspirin 81 mg Tablet 81 mg PO DAILY RF: 0 Discharge Orders: Discharge Order (Routine); Ordered 12/30/20 Ordered By: Pricila Escamilla/Other Patient Handouts: DVT Post Op Prevention, Cholecystectomy Laparoscopic Dc Admission Data Admit Date/Time: 12/29/20 06:44 Attending Provider: Robinson Carroll Admit Provider: Robinson Carroll Primary Care Provider: Norma Nava Other Providers: Joanna Woods Other Interventions: Discharge Summary Assessment (RN) Last Done: 12/30/20 10:43
== END 2020-12-30 12:17 | disposition home or self-care (01) ==
LOC: ED 02:58 → 3N 02:58

== ENCOUNTER 2022-04-04 04:25 | Inpatient (IN) ==
[2022-04-04 04:59] LABS: Basophils # (auto) 0.05 K/uL (0-0.2); Basophils % (auto) 0.5 %; Eosinophils # (auto) 0.22 K/uL (0-0.50); Eosinophils % (auto) 2.3 %; Hematocrit (blood only) 45.2 % (40.1-51.0); Hemoglobin 15.6 g/dl (14.0-18.0); Immature Granulocytes # (auto) 0.04 K/uL (0.00-0.02); Immature Granulocytes % (auto) 0.4 %; Lymphocytes # (auto) 1.68 K/uL (1.2-3.4); Lymphocytes % (auto) 17.3 %; Mean Corpuscular Hemoglobin 30.1 pg (25.0-34.0); Mean Corpuscular Hgb Conc 34.5 g/dL (32.0-36.0); Mean Corpuscular Volume 87.3 fL (80.0-100.0); Mean Platelet Volume 10.5 fL (9.4-12.4); Monocytes # (auto) 0.82 K/uL (0.24-0.82); Monocytes % (auto) 8.5 %; Neutrophils # (auto) 6.88 K/uL (1.4-6.5); Platelet Count 230 K/uL (130-400); RDW Coefficient of Variation 11.9 % (11.5-14.5); RDW Standard Deviation 38.5 fL (36.4-46.3); Red Blood Count 5.18 M/uL (4.63-6.08); White Blood Count 9.69 K/ul (4.8-10.8)
[2022-04-04] MEDS ORDERED: OPTIRAY 320 500ml IV ONE (05:00)
[2022-04-04] MEDS ORDERED: Heparin IV Adult Wt-Based Standard WITH Bolus Protocol IV STA (05:11)
[2022-04-04 05:18] LABS: Albumin Globulin Ratio 1.4 (0.9-2); Albumin Level 4.2 gm/dl (3.4-5.0); BUN Creatinine Ratio 11.7 (10-20); Bilirubin,Total 0.8 mg/dl (0.2-1.0); Calcium 8.5 mg/dl (8.5-10.1); Creatinine Clr Calc Pharmacy 77.3 ml/min; Est GFR (African American) 76.8 ml/min; Est GFR (Non-African American) 66.3 ml/min; Globulin 2.9 gm/dl (2.5-4.0); Potassium 4.2 mmol/L (3.5-5.1); Total Protein 7.1 gm/dl (6.0-8.3)
[2022-04-04] MEDS ORDERED: HEPARIN SOD (PORCINE) 1000 UNIT/ML IV ONE ×2 (05:27)
[2022-04-04 05:50] LABS: INR 1.1 (0.9-1.1); Prothrombin Time 11.7 Seconds (9.0-12.0)
[2022-04-04] MEDS: HEPARIN SODIUM/DEXTROSE 25,000 UNITS/500 ML BAG IV SCH (05:52)
[2022-04-04 06:28] LABS: Partial Thromboplastin Ratio 1.1
--- NOTE | 2022-04-04 06:38 | History & Physical Report ---
Date of Service April 04, 2022 Assessment & Plan (1) Pulmonary emboli: Plan Recent diagnosis of RLE DVT PE likely secondary to recent RLE DVT Patient was started on Eliquis on Tuesday, today came in with chest discomfort and shortness of breath that started at 3 AM in the morning and exacerbated with deep breathing Patient was tachycardic at presentation, blood works fairly WNL, troponin WNL, CTA chest as in HPI with left lung PE. Patient started on heparin drip in the ED, continue with same, pulmonology consult. ECHO to r/o heart strain. Other chronic medical conditions: Resume home meds as able DVT prophylaxis: Patient on heparin drip Full code Text document was generated using voice recognition software. It may contain grammatical or spelling errors. Kindly contact undersigned for clarification of any documentation item in question. History of Present Illness Chief Complaint: Chest discomfort Primary Care Provider: Norma Nava DO 56-year-old male with PMH of dyslipidemia, JOIE, extrinsic asthma, moderate persistent, GERD, kidney stone, generalized osteoarthritis of multiple sites, obesity presented to our ED with complaint of chest pain and shortness of breath since 3 AM in the morning. Chest pain was left-sided and worse with deep breathing. Patient was diagnosed with RLE DVT few days ago and was started on Eliquis since last Tuesday, patient also has history of LLE DVT 2 years ago likely unprovoked for which the patient was on Eliquis for 6 months. He had COVID pneumonia in August and has been having persistent cough since then. Denies feeling of heart racing, acute changes in bowel or bladder habit, fever, headache or dizziness or other review of symptoms. Denies smoking tobacco/alcohol use/recreational drug use Full code Family history positive for blood clots in multiple family members, younger sister with DVT and PE who in January last year, father with postoperative DVT. Medications were reviewed at bedside with the patient. Patient underwent CTA chest, preliminary read CTA CHEST: Prominent left-sided PE involves the interlobar artery with extension into multiple segmental and subsegmental pulmonary artery branches at the left lung base. Left upper lobe segmental branches also involved as well as posterior and the medial segmental and subsegmental branches of the right lung base There is no CT evidence for acute right heart strain Peribronchial cuffing noted Patchy groundglass opacities may reflect microatelectasis related to the bronchial wall thickening versus nonspecific pneumonitis. At the left lung base pulmonary infarct may be present versus atelectasis Small left pleural effusion noted Allergies Allergy/AdvReac Type Severity Reaction Status Date / Time No Known Allergies Allergy Verified 12/07/21 01:29 Home Medications Medication Instructions Recorded Confirmed Type albuterol sulfate 90 mcg/actuation 2 puff inhalation DIRECTED PRN 12/07/21 12/07/21 History aerosol inhaler SOB/COUGH calcium carbonate 300 mg (750 mg) 600 mg PO DIRECTED PRN 12/07/21 12/07/21 History chewable tablet (Tums) HEARTBURN/INDIGESTION fluticasone propionate 230 2 inh inhalation BID 12/07/21 12/07/21 History mcg-salmeterol 21 mcg/actuation HFA inhaler (Advair HFA) levofloxacin 750 mg tablet 750 mg PO DAILY 12/07/21 12/07/21 History montelukast 10 mg tablet 10 mg PO DAILY 12/07/21 12/07/21 History Past Med/Surg History Medical History Acute cholecystitis Asthma DVT of leg (deep venous thrombosis) Sleep apnea Social History Smoking Status: Never smoker Hx Alcohol Use: No Hx Substance Use: No Preferred Language: Georgian Beliefs That Will Affect Care: Jew Jew Beliefs: Islam Current Living Situation: Spouse Feels Safe at Home: Yes Assistive Devices: None Review of Systems Review of Systems: Negative otherwise mentioned in HPI. Physical Exam Physical Exam: GENERAL: Alert and oriented x3. NAD, on RA. Obese class I. HEENT: No pallor, no icterus. Pupils equal, round and reactive to light. Oral mucosa moist. NECK: No JVD, no neck masses. HEART: S1 and S2 heard. tachycardia. No murmur, no gallop. RESPIRATORY SYSTEM: Normal AP diameter. No accessory muscle use. No wheezing, no crackles. ABDOMEN: Soft, bowel sounds present, nontender, no distention. CENTRAL NERVOUS SYSTEM: No facial droop. Speech is clear. Obeys simple commands. Moves extremities. EXTREMITIES: No edema, no erythema seen. Results & Data Results & Data ([facility]) Vital Signs (Past 12 Hours) Vital Signs Temp Pulse Resp BP Pulse Ox O2 Del Method 04/04/22 06:00 96 H 21 140/87 98 Room Air 04/04/22 05:38 94 H 17 150/92 H 95 Room Air 04/04/22 05:08 99 H 16 126/88 95 Room Air 04/04/22 04:55 Room Air 04/04/22 04:52 Room Air 04/04/22 04:31 36.9 C 115 H 22 130/87 96 Room Air
[2022-04-04] MEDS ORDERED: MAGNESIUM HYDROXIDE SUSP 30 ML UDC PO PRN (06:40)
[2022-04-04] MEDS ORDERED: ALUMINUM/MAGNESIUM SUSP 30 ML UDC PO PRN (06:40)
[2022-04-04] MEDS ORDERED: POLYETHYLENE (MIRALAX) 17 GM PACK PO PRN (06:40)
[2022-04-04] MEDS: ACETAMINOPHEN 325 MG TAB PO PRN ×3 (07:07→19:31)
--- NOTE | 2022-04-04 07:45 | Emergency Department Note ---
Impression & Plan Pulmonary embolism, bilateral Admission to the hospital on a heparin drip ED Provider Note NAME: MARITZA RUIZ AGE: 56 SEX: M ARRIVES VIA: Walk-In INFORMANT: Patient ED PROVIDER(S): Marley Chang DO CHIEF COMPLAINT: Left-sided chest pain and shortness of breath PLAN: Disposition: Admit to the hospital on a heparin drip Condition: Guarded MEDICAL DECISION MAKING: This is a 56-year-old male patient with history of DVT recently started on Eliquis who presents the emergency department with worsening left-sided chest pain and shortness of breath. Patient has a strong family history of DVT and PE. In fact patient sister last year of sudden cardiac arrest thought to be secondary to PE. The patient has a remote history of DVT from years ago for which he took Eliquis but that has been stopped. CT scan of the chest confirms a large left-sided PE with possible infarct and a small right-sided PE. PT/INR were drawn and the patient was bolused with IV heparin and started on a heparin drip. He was hemodynamically stable with a stable blood pressure and mild tachycardia. There was no evidence of right heart strain on the CT. The patient will be admitted to the [facility] Triage Nursing notes reviewed and agree with them. Vital Signs: reviewed and remarkable for tachycardia and hypertension Differential diagnosis: Pleurisy, costochondritis, PE, cardiac ischemia ER treatment provided: IV heparin bolus IV heparin drip Twelve-lead residence supervisor Diagnostics interpreted by me: ECG: Sinus tachycardia at a rate of [address] segment elevation or signs of ischemia. There is no ectopy. Cardiac Monitoring: none Laboratory studies: See below Imaging studies: As per [facility] CTA chest: Prominent left-sided PE involves the intra or lobar artery with extension into multiple segmental and subsegmental pulmonary artery branches of the left lung base. Left upper lobe segmental branches also involved as well as posterior and medial segmental and subsegmental branches of the right lung base. There is no CT evidence for acute right heart strain. Peribronchial cuffing noted. Patchy groundglass opacities may reflect microatelectasis related to the bronchial wall thickening versus nonspecific pneumonitis. At the left lung base pulmonary infarct may be present versus atelectasis. Small left pleural effusion noted. Consultations: I spoke with the radiologist from [facility] about the results of the CT as the patient had such significant clot burden in the left lung. HPI: 56/M arrives for evaluation of left-sided chest pain and shortness of breath. The patient was diagnosed with a DVT in his right leg 5 days ago and started on Eliquis. He has since developed left-sided chest pain and shortness of breath. 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 HOME MEDICATIONS: See list ALLERGIES: None VITALS:See Below PHYSICAL EXAMINATION: HEENT: Head - normocephalic and atraumatic Pupils are equal, round, and reactive to light. Extraocular eye muscles are intact, and sclera are anicteric. Nose - moist nasal mucosa without discharge. Mouth - moist buccal mucosa. Oropharynx is nonerythematous and there is no tonsillar exudate or edema noted. Neck: Supple; no JVD, nuchal rigidity, cervical lymphadenopathy, or auscultated bruits. Heart: Tachycardic rate and regular rhythmthere is a normal S1 and S2 with no murmurs, clicks, or gallops appreciated. Lungs: Clear to auscultation bilaterally with no wheezes, rales, or rhonchi. Abdomen: Soft, completely nontender, nondistended, with good bowel sounds. There are no palpable pulsatile masses or hepatosplenomegaly. There is no guarding, rigidity, or rebound noted. Extremities: Varicose veins; easily palpable distal pulses Skin: warm and dry with good turgor and no rashes. ED COURSE: Times/Reassessments: 435 patient was evaluated in room C3. A complete history and physical was performed. An IV lock was initiated and labs were drawn as above. An order was placed for continuous cardiac monitoring. The patient was in a sinus tachycardia at a rate of 112 The patient went emergently for a CT scan of his chest to rule out PE. I spoke with the radiologist about the results of the CT scan and the patient was started on IV heparin bolus and heparin drip. [facility] and [facility] will evaluate for further management. I have personally spent greater than 30 minutes of critical care time in the direct management of this patient. This includes bedside care, interpretation of diagnostic studies, and testing, discussion with consultants, patient, and family members, and other required patient management activities. This 30 minutes is in excess of all separately billable procedures. Marley Chang DO Past Med/Surg History Medical History (Updated 04/04/22 @ 13:52 by Arpan Mc MD) Acute cholecystitis Asthma Chronic coughing DVT of leg (deep venous thrombosis) Sleep apnea Social History Smoking Status: Never smoker Hx Alcohol Use: No Hx Substance Use: No Preferred Language: Barbadian Communication Ability: Effective History Faculty Member Required: No Beliefs That Will Affect Care: Confucianism Confucianism Beliefs: Scientologist Current Living Situation: Spouse Feels Safe at Home: Yes Assistive Devices: None Allergies Allergies Allergy/AdvReac Type Severity Reaction Status Date / Time No Known Allergies Allergy Verified 12/07/21 01:29 Home Meds Home Medications Medication Instructions Recorded Confirmed albuterol sulfate 90 mcg/actuation 2 puff inhalation BID PRN sob 04/04/22 04/04/22 aerosol inhaler apixaban 5 mg tablet (Eliquis) 10 mg PO BID 04/04/22 04/04/22 fluticasone propionate 230 1 inh inhalation BID 04/04/22 04/04/22 mcg-salmeterol 21 mcg/actuation HFA inhaler (Advair HFA) montelukast 10 mg tablet 10 mg PO DAILY 04/04/22 04/04/22 omeprazole 20 mg capsule,delayed 20 mg PO DAILY 04/04/22 04/04/22 release Results & Data (ED) Vital Signs Vital Signs - 24 hr 04/04/22 04:31 04/04/22 04:52 04/04/22 04:55 Temperature 36.9 C Temperature Source Temporal Artery Scan Pulse Rate 115 H Pulse Rate from SpO2 Sensor Respiratory Rate 22 Respiratory Effort / Characteristics Spontaneous Short of Breath Respiratory Depth Deep Respiratory Pattern Regular Blood Pressure 130/87 Blood Pressure Mean 101 Blood Pressure Position Sitting Pulse Oximetry 96 Oxygen Delivery Method Room Air Room Air Room Air Sepsis Recent Fever Within 48 Hours No Sepsis New/Unexplained Change in Mental Status N/A Sepsis Action Taken by Nursing No Action Required 04/04/22 05:08 04/04/22 05:38 04/04/22 06:00 Temperature Temperature Source Pulse Rate 99 H 94 H 96 H Pulse Rate from SpO2 Sensor 99 H 93 H 95 H Respiratory Rate 16 17 21 Respiratory Effort / Characteristics Respiratory Depth Respiratory Pattern Blood Pressure 126/88 150/92 H 140/87 Blood Pressure Mean 100 111 104 Blood Pressure Position Pulse Oximetry 95 95 98 Oxygen Delivery Method Room Air Room Air Room Air Sepsis Recent Fever Within 48 Hours Sepsis New/Unexplained Change in Mental Status Sepsis Action Taken by Nursing 04/04/22 06:30 Temperature Temperature Source Pulse Rate Pulse Rate from SpO2 Sensor 90 Respiratory Rate 20 Respiratory Effort / Characteristics Respiratory Depth Respiratory Pattern Blood Pressure 130/90 Blood Pressure Mean 103 Blood Pressure Position Pulse Oximetry 96 Oxygen Delivery Method Room Air Sepsis Recent Fever Within 48 Hours Sepsis New/Unexplained Change in Mental Status Sepsis Action Taken by Nursing Laboratory Data Result diagrams: 04/04/22 04:45 04/04/22 04:45 Lab Results 04/04/22 04/04/22 04/04/22 Range/Units 04:45 04:45 04:45 WBC 9.69 (4.8-10.8) K/ul RBC 5.18 (4.63-6.08) M/uL Hgb 15.6 (14.0-18.0) g/dl Hct 45.2 (40.1-51.0) % MCV 87.3 (80.0-100.0) fL MCH 30.1 (25.0-34.0) pg MCHC 34.5 (32.0-36.0) g/dL RDW Std Deviation 38.5 (36.4-46.3) fL RDW Coeff of Mary 11.9 (11.5-14.5) % Plt Count 230 (130-400) K/uL MPV 10.5 (9.4-12.4) fL Immature Gran % (Auto) 0.4 % Neut % (Auto) 71.0 % Lymph % (Auto) 17.3 % Deuel % (Auto) 8.5 % Eos % (Auto) 2.3 % Baso % (Auto) 0.5 % Neut # (Auto) 6.88 H (1.4-6.5) K/uL Lymph # (Auto) 1.68 (1.2-3.4) K/uL Deuel # (Auto) 0.82 (0.24-0.82) K/uL Eos # (Auto) 0.22 (0-0.50) K/uL Baso # (Auto) 0.05 (0-0.2) K/uL Immature Gran # (Auto) 0.04 H (0.00-0.02) K/uL PT 11.7 (9.0-12.0) Seconds INR 1.1 (0.9-1.1) APTT (21.0-31.0) Seconds PTT Ratio Sodium 139 (136-145) mmol/L Potassium 4.2 (3.5-5.1) mmol/L Chloride 106 (98-107) mmol/L Carbon Dioxide 27 (21-32) mmol/L Anion Gap 6 (3-11) BUN 14 (6-23) mg/dl Creatinine 1.20 (0.6-1.4) mg/dl Est Cr Clr Drug Dosing 77.3 ml/min Est GFR ( Amer) 76.8 ml/min Est GFR (Non-Af Amer) 66.3 ml/min BUN/Creatinine Ratio 11.7 (10-20) Glucose 125 H (70-99(Fasting)) mg/dl Calcium 8.5 (8.5-10.1) mg/dl Total Bilirubin 0.8 (0.2-1.0) mg/dl AST 34 (13-39) U/L ALT 27 (7-52) U/L Alkaline Phosphatase 43 (34-104) U/L Troponin I High Sens (0-20) pg/ml Total Protein 7.1 (6.0-8.3) gm/dl Albumin 4.2 (3.4-5.0) gm/dl Globulin 2.9 (2.5-4.0) gm/dl Albumin/Globulin Ratio 1.4 (0.9-2) SARS-CoV-2, RNA, NAAT (NEGATIVE) 04/04/22 04/04/22 04/04/22 Range/Units 04:45 04:45 05:51 WBC (4.8-10.8) K/ul RBC (4.63-6.08) M/uL Hgb (14.0-18.0) g/dl Hct (40.1-51.0) % MCV (80.0-100.0) fL MCH (25.0-34.0) pg MCHC (32.0-36.0) g/dL RDW Std Deviation (36.4-46.3) fL RDW Coeff of Mary (11.5-14.5) % Plt Count (130-400) K/uL MPV (9.4-12.4) fL Immature Gran % (Auto) % Neut % (Auto) % Lymph % (Auto) % Deuel % (Auto) % Eos % (Auto) % Baso % (Auto) % Neut # (Auto) (1.4-6.5) K/uL Lymph # (Auto) (1.2-3.4) K/uL Deuel # (Auto) (0.24-0.82) K/uL Eos # (Auto) (0-0.50) K/uL Baso # (Auto) (0-0.2) K/uL Immature Gran # (Auto) (0.00-0.02) K/uL PT (9.0-12.0) Seconds INR (0.9-1.1) APTT 30.0 (21.0-31.0) Seconds PTT Ratio 1.1 Sodium (136-145) mmol/L Potassium (3.5-5.1) mmol/L Chloride (98-107) mmol/L Carbon Dioxide (21-32) mmol/L Anion Gap (3-11) BUN (6-23) mg/dl Creatinine (0.6-1.4) mg/dl Est Cr Clr Drug Dosing ml/min Est GFR ( Amer) ml/min Est GFR (Non-Af Amer) ml/min BUN/Creatinine Ratio (10-20) Glucose (70-99(Fasting)) mg/dl Calcium (8.5-10.1) mg/dl Total Bilirubin (0.2-1.0) mg/dl AST (13-39) U/L ALT (7-52) U/L Alkaline Phosphatase (34-104) U/L Troponin I High Sens 5.4 (0-20) pg/ml Total Protein (6.0-8.3) gm/dl Albumin (3.4-5.0) gm/dl Globulin (2.5-4.0) gm/dl Albumin/Globulin Ratio (0.9-2) SARS-CoV-2, RNA, NAAT NEGATIVE (NEGATIVE) Administered Medications Acetaminophen (Acetaminophen 325 Mg Tab) 650 mg PO Q4H PRN PRN Reason: Pain or Fever Stop: 05/04/22 06:39 Last Admin: 04/04/22 07:07 Dose: 650 mg Documented By: DANIEL Fluticasone/Vilanterol (Fluticasone/Vilanterol 200/25mcg 14 Puffs/Inhaler) 1 puffs INH DAILY [facility] Stop: 05/04/22 09:59 Last Admin: 04/04/22 14:17 Dose: 1 puffs Documented By: MAISHA Heparin Sodium/Dextrose (Heparin Sodium/Dextrose) 25,000 units in 500 mls @ 29 mls/hr IV .[id number] [facility]; Protocol Stop: 05/04/22 05:29 Last Admin: 04/04/22 05:52 Dose: 1,450 units/hr, 29 mls/hr Documented By: UBALDO Co-signed By: INDIGO Montelukast Sodium (Montelukast Sodium 10 Mg Tablet) 10 mg PO DAILY [facility] Stop: 05/04/22 09:28 Last Admin: 04/04/22 10:09 Dose: 10 mg Documented By: DANIEL Pantoprazole Sodium (Pantoprazole 40 Mg Tab) 40 mg PO QAM [facility] Stop: 05/04/22 09:28 Last Admin: 04/04/22 10:09 Dose: 40 mg Documented By: DANIEL Discontinued Medications Heparin Sodium (Porcine) (Heparin Sod (Porcine) 1000 Unit/Ml) 5,000 units IV NOW ONE Stop: 04/04/22 05:28 Last Admin: 04/04/22 05:53 Dose: 5,000 units Documented By: UBALDO Co-signed By: INDIGO Ioversol (Optiray 320 500ml) 111 ml IV ONCE ONE Stop: 04/04/22 05:01 Last Admin: 04/04/22 05:01 Dose: 111 ml Documented By: SABIHA Imaging Data Radiologist's Impression: Chest CTA 04/04/22 04:46 CT ANGIOGRAPHY OF THE CHEST, PULMONARY EMBOLUS PROTOCOL CLINICAL HISTORY: Dyspnea. COMPARISON STUDY: Chest radiograph December 29, 2020. TECHNIQUE: Following IV administration of 111 mL of Optiray, helical axial images of the chest were obtained utilizing the pulmonary embolus protocol. Maximal intensity projections and sagittal and coronal reformats were viewed on an independent 3D workstation. IV contrast was administered without complication. Automated exposure control was utilized for the study. A dose lowering technique was utilized adhering to the principles of ALARA. CT DOSE: 537.29 mGy.cm FINDINGS: Extensive left-sided pulmonary emboli are noted, including emboli within the distal left pulmonary artery. Emboli extend into the lobar and segmental branches of the left lung. A few small subsegmental right-sided pulmonary emboli are present. There is no CT evidence for right heart strain. There is no thoracic lymphadenopathy. A small left pleural effusion is noted. S ubpleural groundglass opacity within the left lower lobe measuring 4.9 cm is suggestive of a pulmonary infarct. There is no right-sided pleural effusion. There is no pneumothorax. Additional subpleural groundglass opacities favor atelectasis. Gallbladder is surgically absent. There is a 2.9 cm medial segment left hepatic lobe cyst. IMPRESSION: 1. Extensive left-sided pulmonary emboli. A few subsegmental right-sided pulmonary emboli. 2. 4.9 cm subpleural left lower lobe opacity consistent with a pulmonary infarct. Small left pleural effusion. ACT 112: Negative or not required by law. Electronically signed by: Cordell Alcala M.D. 04/04/2022 8:17 AM Chest X-Ray 04/04/22 04:46 XR chest 1V portable CLINICAL HISTORY: Dyspnea. COMPARISON STUDY: Chest radiograph December 29, 2020. FINDINGS: Lung volumes are normal. Lungs are clear. There is no pneumothorax or pleural effusion. Cardiac size is normal. Mediastinal contours are normal. There is no evidence for pulmonary edema. IMPRESSION: No acute cardiopulmonary findings. ACT 112: Negative or not required by law. Electronically signed by: Cordell Alcala M.D. 04/04/2022 8:11 AM Discharge Plan Visit Data Chief Complaint: Shortness of Breath/Dyspnea ED Provider: Marley Chang Discharge Problem: Pulmonary embolism, bilateral Discharge Instructions Interventions: ED Discharge Assessment Last Done: 04/04/22 09:17
--- NOTE | 2022-04-04 08:12 | XRay Report ---
XR chest 1V portable CLINICAL HISTORY: Dyspnea. COMPARISON STUDY: Chest radiograph December 29, 2020. FINDINGS: Lung volumes are normal. Lungs are clear. There is no pneumothorax or pleural effusion. Car diac size is normal. Mediastinal contours are normal. There is no evidence for pulmonary edema. IMPRESSION: No acute cardiopulmonary findings. ACT 112: Negative or not required by law. Electronically signed by: Cordell Alcala M.D. 04/04/2022 8:11 AM
--- NOTE | 2022-04-04 08:18 | CT Scan Report ---
CT ANGIOGRAPHY OF THE CHEST, PULMONARY EMBOLUS PROTOCOL CLINICAL HISTORY: Dyspnea. COMPARISON STUDY: Chest radiograph December 29, 2020. TECHNIQUE: Following IV administration of 111 mL of Optiray, helical axial images of the chest were o btained utilizing the pulmonary embolus protocol. Maximal intensity projections and sagittal and cor onal reformats were viewed on an independent 3D workstation. IV contrast was administered without co mplication. Automated exposure control was utilized for the study. A dose lowering technique was ut ilized adhering to the principles of ALARA. CT DOSE: 537.29 mGy.cm FINDINGS: Extensive left-sided pulmonary emboli are noted, including emboli within the distal left p ulmonary artery. Emboli extend into the lobar and segmental branches of the left lung. A few small wolf bsegmental right-sided pulmonary emboli are present. There is no CT evidence for right heart strain. There is no thoracic lymphadenopathy. A small left pleural effusion is noted. Subpleural groundglass opacity within the left lower lobe measuring 4.9 cm is suggestive of a pulmonary infarct. There is no right-sided pleural effusion. There is no pneumothorax. Additional subpleural groundglass opacities favor atelectasis. Gallbladder is surgically absent. There is a 2.9 cm medial segment left hepatic lo be cyst. IMPRESSION: 1. Extensive left-sided pulmonary emboli. A few subsegmental right-sided pulmonary emboli. 2. 4.9 cm subpleural left lower lobe opacity consistent with a pulmonary infarct. Small left pleural effusion. ACT 112: Negative or not required by law. Electronically signed by: Cordell Alcala M.D. 04/04/2022 8:17 AM
--- NOTE | 2022-04-04 10:05 | Electrocardiogram Report ---
Test Reason : Blood Pressure : / mmHG Vent. Rate : 106 BPM Atrial Rate : 106 BPM P-R Int : 154 ms QRS Dur : 110 ms QT Int : 328 ms P-R-T Axes : 033 042 024 degrees QTc Int : 435 ms Sinus tachycardia Incomplete right bundle branch block Nonspecific T wave abnormality Abnormal ECG When compared with ECG of 07-DEC-2021 00:52, No significant change was found Confirmed by Sohail Sinha ([id number]) on 04/04/2022 10:04:36 AM Referred By: REFERRED SELF Confirmed By:Stoney Sinha
[2022-04-04] MEDS: PANTOprazole 40 MG TAB PO SCH (10:09)
[2022-04-04] MEDS: MONTELUKAST SODIUM 10 MG TABLET PO SCH (10:09)
--- NOTE | 2022-04-04 12:39 | Pulmonary Consultation ---
Date of Consultation April 04, 2022 Assessment & Plan (1) Pulmonary emboli: Recurrent venous thromboembolism. We will consult hematology for further work- up and recommendation with anticoagulation. Continue heparin drip with therapeutic PTT for the time being. No indications for systemic thrombolysis at this time as the patient is hemodynamically stable. Follow-up echo. (2) Chronic coughing: Patient notes that he had a CT chest in [facility] which revealed bronchiolitis post COVID-19. He follows with [facility] pulmonology. May need to consider outpatient bronchoscopy in the future if symptoms persist evaluate for chronic infectious etiology. May also be related to poorly controlled reflux/aspiration. Consider outpatient GI referral for EGD and pH monitoring. (3) Sleep apnea: Will initiate CPAP while in the hospital. Patient's brought his home CPAP. History of Present Illness Reason for Consultation: Pulmonary embolism Attending Physician: Mynor Brown MD History of Present Illness 56-year-old male with a past medical history of JOIE, obesity, GERD, oste oarthritis and dyslipidemia who presented to the hospital due to chest pain shortness of breath at 3 AM this morning. He was also diagnosed with a right lower extremity DVT a few days ago and started on Eliquis this past Tuesday. Patient had a history of unprovoked left lower extremity DVT 2 years ago. He notes a family history of which is positive for clots in multiple family members. Chest CTA revealed extensive left-sided pulmonary emboli with 4.9 cm subpleural left lower lobe opacity consistent with an infarct. Possible small left pleural effusion. He is otherwise comfortable. Denies any chest pain or shortness of breath at present. His spouse is at bedside and brought his CPAP to the hospital. Allergies Allergy/AdvReac Type Severity Reaction Status Date / Time No Known Allergies Allergy Verified 12/07/21 01:29 Home Medications Medication Instructions Recorded Confirmed Type albuterol sulfate 90 mcg/actuation 2 puff inhalation BID PRN sob 04/04/22 04/04/22 History aerosol inhaler apixaban 5 mg tablet (Eliquis) 10 mg PO BID 04/04/22 04/04/22 History fluticasone propionate 230 1 inh inhalation BID 04/04/22 04/04/22 History mcg-salmeterol 21 mcg/actuation HFA inhaler (Advair HFA) montelukast 10 mg tablet 10 mg PO DAILY 04/04/22 04/04/22 History omeprazole 20 mg capsule,delayed 20 mg PO DAILY 04/04/22 04/04/22 History release Patient History Medical History (Updated 04/04/22 @ 13:52 by Arpan Mc MD) Acute cholecystitis Asthma Chronic coughing DVT of leg (deep venous thrombosis) Sleep apnea Social History Smoking Status: Never smoker Hx Alcohol Use: No Hx Substance Use: No Preferred Language: Japanese Communication Ability: Effective Perinatal Tech Required: No Beliefs That Will Affect Care: Zoroastrianism Zoroastrianism Beliefs: Caodaism Current Living Situation: Spouse Feels Safe at Home: Yes Assistive Devices: None Review of Systems 2 Review of Systems: All systems reviewed & are unremarkable except as noted in HPI & below Physical Exam Physical Exam: Constitutional: Patient appears to be of their stated age. Patient is in no apparent distress. Patient is well-developed. Eyes: Conjunctivae are normal. Anicteric sclera. Ears nose, mouth and throat: Deferred. Neck: Trachea is midline. Visual inspection is normal. Respiratory: Clear to auscultation bilaterally. No use of accessory muscles. No significant clubbing noted. Cardiovascular: Regular rate and rhythm. No murmurs. No edema. Gastrointestinal: Normal bowel sounds, soft, nontender and nondistended. No hepatosplenomegaly noted. Musculoskeletal: No cyanosis. Patient is able to move all extremities. Skin: No rashes, warm dry and intact. Neurologic: No obvious focal neurological deficits seen. Psychiatric: Alert and oriented x3 with a euthymic affect. Results & Data Results & Data ([facility]) Vital Signs (Past 12 Hours) Vital Signs Temp Pulse Pulse Resp BP BP Pulse Ox 04/04/22 09:38 90 16 114/83 94 04/04/22 09:33 04/04/22 06:59 78 18 136/105 H 95 04/04/22 06:30 20 130/90 96 04/04/22 06:00 96 H 21 140/87 98 04/04/22 05:38 94 H 17 150/92 H 95 04/04/22 05:08 99 H 16 126/88 95 04/04/22 04:55 04/04/22 04:52 04/04/22 04:31 36.9 C 115 H 22 130/87 96 Pulse Ox O2 Del Method 04/04/22 09:38 Room Air 04/04/22 09:33 96 04/04/22 06:59 04/04/22 06:30 Room Air 04/04/22 06:00 Room Air 04/04/22 05:38 Room Air 04/04/22 05:08 Room Air 04/04/22 04:55 Room Air 04/04/22 04:52 Room Air 04/04/22 04:31 Room Air PG Care Time/CCT Total # of Minutes Spent Total Time Spent with Patient: Total time spent is greater than 50% in coordination of care (as documented) at patient's floor/unit and/or counseling patient: Coding Level of Care Code 84827 Inpt Consult Level 4 Diagnoses Pulmonary emboli I26.99 Chronic coughing R05.3 Sleep apnea G47.30
[2022-04-04 12:43] LABS: Partial Thromboplastin Ratio 2.3
--- NOTE | 2022-04-04 13:10 | Hospitalist Progress Note ---
Date of Service April 04, 2022 Assessment & Plan (1) Pulmonary emboli: Plan: recent DVT diagnosed this week, was started on apixaban. Was already reporting SOB with exertion. Developed acute pain in left lower chest yesterday prompting admission and found to have pulmnoary infarction. Remains on a heparin drip. Some tachycardia noted but mild. Awaiting pul recs. (2) Asthma: Plan: chronic controlled. Cont current inhaler therapy and montelukast. (3) Sleep apnea: Plan: Noncompliant with CPAP. OK wtih using in hospital and plans to bring his own machine from home. (4) CAD (coronary artery disease): Plan: coronary calcification noted on imaging. Per patient report he is supposed to take atorvastatin and baby aspirin. Will review chart and discuss prior to discharge. Heparin Full Code [facility] Admission and Anticipated Discharge Date Admission Date: April 04, 2022 Subjective 56 yo M with personal and family history of DVT presents with acute bilateral PE with pulmonary infarction On heparin and doing well, still with sharp left lower chest pain especially with deep breathing Otherwise no issues reviewed home medications and care plan including goals with he and his who is at bedside. Review of Systems Review of Systems: All systems were reviewed and negative except as indicated on subjective above. Physical Exam Physical Exam: CONSTITUTIONAL: WNWD, vitals as above, generally well- appearing, NAD EYES: normal conjunctivae, no scleral icterus ENT: external ear and nose normal, MMM, supplemental oxygen in place. NECK: trachea midline RESPIRATORY: clear to auscultation bilaterally, no crackles, rales or wheezes, normal respiratory effort CARDIOVASCULAR: regular rate and rhythm, S1 and 2 heard without murmurs, gallops or rubs, no JVD, no peripheral edema CHEST: inspection of chest was normal GASTROINTESTINAL: soft, nontender, ND, no guarding MUSCULOSKELETAL: strength 5/5 throughout, head is normocephalic and atraumatic SKIN: warm and dry NEUROLOGIC: CN 2-12 grossly intact, no sensory deficit, normal cognition, normal speech, no tremor, no focal deficit. PSYCHIATRIC: alert cooperative and oriented to person, place and time. Results & Data Results & Data ([facility]) Vital Signs (Past 12 Hours) Vital Signs Temp Pulse Pulse Resp BP BP Pulse Ox 04/04/22 09:38 90 16 114/83 94 04/04/22 09:33 04/04/22 06:59 78 18 136/105 H 95 04/04/22 06:30 20 130/90 96 04/04/22 06:00 96 H 21 140/87 98 04/04/22 05:38 94 H 17 150/92 H 95 04/04/22 05:08 99 H 16 126/88 95 04/04/22 04:55 04/04/22 04:52 04/04/22 04:31 36.9 C 115 H 22 130/87 96 Pulse Ox O2 Del Method 04/04/22 09:38 Room Air 04/04/22 09:33 96 04/04/22 06:59 04/04/22 06:30 Room Air 04/04/22 06:00 Room Air 04/04/22 05:38 Room Air 04/04/22 05:08 Room Air 04/04/22 04:55 Room Air 04/04/22 04:52 Room Air 04/04/22 04:31 Room Air Laboratory Results Short CBC 04/04/22 Range/Units 04:45 WBC 9.69 (4.8-10.8) K/ul Hgb 15.6 (14.0-18.0) g/dl Hct 45.2 (40.1-51.0) % Plt Count 230 (130-400) K/uL BMP 04/04/22 04:45 Sodium 139 Potassium 4.2 Chloride 106 Carbon Dioxide 27 BUN 14 Creatinine 1.20 Glucose 125 H Calcium 8.5 Liver Function 04/04/22 Range/Units 04:45 Total Bilirubin 0.8 (0.2-1.0) mg/dl AST 34 (13-39) U/L ALT 27 (7-52) U/L Alkaline Phosphatase 43 (34-104) U/L Albumin 4.2 (3.4-5.0) gm/dl Diagnostic Findings Chest CTA 04/04/22 04:46 CT ANGIOGRAPHY OF THE CHEST, PULMONARY EMBOLUS PROTOCOL CLINICAL HISTORY: Dyspnea. COMPARISON STUDY: Chest radiograph December 29, 2020. TECHNIQUE: Following IV administration of 111 mL of Optiray, helical axial images of the chest were obtained utilizing the pulmonary embolus protocol. Maximal intensity projections and sagittal and coronal reformats were viewed on an independent 3D workstation. IV contrast was administered without complication. Automated exposure control was utilized for the study. A dose lowering technique was utilized adhering to the principles of ALARA. CT DOSE: 537.29 mGy.cm FINDINGS: Extensive left-sided pulmonary emboli are noted, including emboli within the distal left pulmonary artery. Emboli extend into the lobar and segmental branches of the left lung. A few small subsegmental right-sided pulmonary emboli are present. There is no CT evidence for right heart strain. There is no thoracic lymphadenopathy. A small left pleural effusion is noted. Subpleural groundglass opacity within the left lower lobe measuring 4.9 cm is suggestive of a pulmonary infarct. There is no right-sided pleural effusion. There is no pneumothorax. Additional subpleural groundglass opacities favor atelectasis. Gallbladder is surgically absent. There is a 2.9 cm medial segment left hepatic lobe cyst. IMPRESSION: 1. Extensive left-sided pulmonary emboli. A few subsegmental right-sided pulmonary emboli. 2. 4.9 cm subpleural left lower lobe opacity consistent with a pulmonary infarct. Small left pleural effusion. ACT 112: Negative or not required by law. Electronically signed by: Cordell Alcala M.D. 04/04/2022 8:17 AM Chest X-Ray 04/04/22 04:46 XR chest 1V portable CLINICAL HISTORY: Dyspnea. COMPARISON STUDY: Chest radiograph December 29, 2020. FINDINGS: Lung volumes are normal. Lungs are clear. There is no pneumothorax or pleural effusion. Cardiac size is normal. Mediastinal contours are normal. There is no evidence for pulmonary edema. IMPRESSION: No acute cardiopulmonary findings. ACT 112: Negative or not required by law. Electronically signed by: Cordell Alcala M.D. 04/04/2022 8:11 AM Medications Administered Current Inpatient Medications Acetaminophen (Acetaminophen 325 Mg Tab) 650 mg PO Q4H PRN PRN Reason: Pain or Fever Stop: 05/04/22 06:39 Last Admin: 04/04/22 07:07 Dose: 650 mg Al Hydrox/Mg Hydrox/Simethicone (Aluminum/Magnesium Susp 30 Ml Udc) 15 ml PO Q4H PRN PRN Reason: Dyspepsia Stop: 05/04/22 06:39 Albuterol (Albuterol Hfa 8 Gm Inhaler) 2 puffs INH Q6 PRN PRN Reason: SOB/COUGH Stop: 05/04/22 09:28 Fluticasone/Vilanterol (Fluticasone/Vilanterol 200/25mcg 14 Puffs/Inhaler) 1 puffs INH DAILY ON LICENSE OF [facility] Stop: 05/04/22 09:59 Heparin Sodium/Dextrose (Heparin Sodium/Dextrose) 25,000 units in 500 mls @ 29 mls/hr IV .[id number] ON LICENSE OF [facility]; Protocol Stop: 05/04/22 05:29 Last Admin: 04/04/22 05:52 Dose: 1,450 units/hr, 29 mls/hr Magnesium Hydroxide (Magnesium Hydroxide Susp 30 Ml Udc) 30 ml PO Q12H PRN PRN Reason: Constipation Stop: 05/04/22 06:39 Montelukast Sodium (Montelukast Sodium 10 Mg Tablet) 10 mg PO DAILY ON LICENSE OF [facility] Stop: 05/04/22 09:28 Last Admin: 04/04/22 10:09 Dose: 10 mg Pantoprazole Sodium (Pantoprazole 40 Mg Tab) 40 mg PO QAM ON LICENSE OF [facility] Stop: 05/04/22 09:28 Last Admin: 04/04/22 10:09 Dose: 40 mg Polyethylene Glycol (Polyethylene (Miralax) 17 Gm Pack) 17 gm PO DAILY PRN PRN Reason: Constipation Stop: 05/04/22 06:39
[2022-04-04 13:42] LABS: Partial Thromboplastin Time 63.2 Seconds (21.0-31.0)
[2022-04-04] MEDS: FLUTICASONE/VILANTEROL 200/25MCG 14 PUFFS/INHALER INH SCH (14:17)
[2022-04-04] MEDS: ALBUTEROL HFA 8 GM INHALER INH PRN ×2 (16:06→20:00)
--- NOTE | 2022-04-04 20:56 | Consultation ---
Date of Consultation April 04, 2022 Assessment & Plan (1) Pulmonary emboli: Patient admitted with pulmonary embolism and pulmonary infarction 4 days after initiation of apixaban for a right lower extremity DVT. This is in the context of a family history of venous thromboembolism as above, a personal history of contralateral lower extremity DVT 2 years ago, and an episode of COVID19 in August. He is a non-smoker and there are no concerning findings for malignancy on two- dimensional chest imaging. History and examination as described by the hospitalist and pulmonary medicine teams do not raise a high suspicion of occult abdominal malignancy. First question is whether this truly represents a "failure" of the apixaban. In discussing the management of recurrent venous thrombosis, Kurt et al. (Thrombosis Research 2019, 180:105-109 https://www.sciencedirect.com/science/article/pii/K432920593016517M) make the observation that "recurrent" VTE diagnosed very soon after initiation of treatment may simply represent the inertia of the original thrombotic event and/or delayed recognition of the full symptom complex associated with that initial event. They discuss "Very early treatment failure (<1?week) In patients who develop recurrent VTE early on in therapy (e.g. within the first week), there is little expectation that thrombus will have organized and endothelialized within this first week. As such these fresh thrombi may embolise despite anticoagulant therapy and not because of inadequacy of suppression of thrombin generation. As such, our approach is to maintain current anticoagulant therapy for very early new VTE. Nonetheless, this approach has never been prospectively validated and published but our local experience is reassuring." They acknowledge that there is no well-established "standard" definition of early treatment failure versus expected inertia of initial thrombosis. The fact that this patient presented with a pulmonary infarct does suggest that the pulmonary embolism that was not necessarily "fresh" and it may well be that some of his symptomatology developed as a consequence of a pulmonary embolism that occurred more proximal to his initial diagnosis but took some time to manifest as that infarct. In that same review, the authors do note a number of other potential pathophysiologies of recurrent thrombosis including inadequate anticoagulant dosing (which seems quite unlikely here) but also certain "hypercoagulable" states including malignancy related hypercoagulability, familial hypercoagulability, and the hypercoagulability related to APLS. More recent experience suggests that a DOAC should be reasonably effective in malignancy related hypercoagulability and it is certainly accepted treatment for familial hypercoagulability. While DOACs are not considered optimal treatment for florid APLS, he lacks other stigmata of that. That all being said, I have personally been a bit more conservative than suggested by Kurt et al. and while I certainly think that we may not be dealing with a technical failure of apixaban in this particular case for the above reasons, whenever there is any question whatsoever of inadequate efficacy of a DOAC I tend to recommend conversion to heparin or heparin like antico agulation for at least 4 to 6 weeks. Doing so allows for a patient weight- specific approach, laboratory testing to confirm adequate anticoagulation, and should offer historically established efficacy in the face of the various hypercoagulability concerns noted above. If the patient does well after 4 to 6 weeks, however, it may be reasonable in shared decision making with patient to convert back to the original DOAC. I would recommend initial heparin to establish stability and then potential conversion to twice daily enoxaparin 1 mg/kg given subcutaneously. For good measure, and anti-Xa level can be checked 4 hours after the third dose of enoxaparin to confirm adequate anticoagulation. Although I think a hypercoagulable work-up will be worthwhile given the possible recurrent VTE and especially with the family history, those functional assays can often be skewed in the early days after initial thrombosis. Findings would not affect the above treatment plan and it may be more prudent to wait for 2 to 3 weeks to initiate the hypercoagulable work-up at a time when the functional assays will have stabilized post-initial thrombosis events. The usual recommendation for "screening" for occult malignancy focuses on assurance of routine screenings (PSA, colonoscopy, comprehensive skin exam) and a habit for symptom directed screening. He is a non-smoker and his chest CT did not suggest any lung malignancy in any case. He apparently does not have other symptoms that point towards the need for additional cancer screening at this time beyond ensuring that he has had up-to-date colonoscopy and PSA assessments and a thorough skin exam. If he hypercoagulable work-up was completely negative, could discuss whether or not 2-dimensional imaging of his abdomen might be considered. Given that his original thrombosis event was 2 years ago, however, the likelihood of a smoldering malignancy not yet clinically evident seems less likely. A final post postscript has to do with the provocative recent report suggesting prolonged hypercoagulability in the wake of COVID-19 infection. Meghan et al. ( Originally [email or web address] Dec 2021 https://doi.org/10.1161/CIRCUL [email or web address] Circulation. 2021;146:875794) in a retrospective review of COVID19 survivors noted persistent increased rates of VTE for up to 49 weeks after an active COVID19 diagnosis. These findings are so early that they are not yet accompanied by any specific treatment recommendations but may add yet another wrinkle to our speculations on why he has a more challenging thrombosis history. Plan 1. Conversion to heparin anticoagulation seems prudent and I would follow that with institution of enoxaparin 1 mg/kg subcutaneously twice daily with the confirmatory testing of anti-Xa levels 4 hours after the third dose. Would continue enoxaparin for at least 4 to 6 weeks which can be done as an outpatient 2. Would defer hypercoagulability testing for at least 2 weeks until the acute thrombosis is stabilized but would be worthwhile to pursue at that time 3. Would assure that his primary care physician has included PSA and colonoscopy screenings in his health maintenance and that a thorough skin exam has been done to exclude any areas of suspicious malignant pattern. Not clear that other empiric endoscopic or additional CT scan imaging is required though if the hypercoagulable screen is otherwise completely negative including exclusion of familial hypercoagulable syndromes, might consider 2-dimensional imaging of the abdomen 4. If the patient remains stable for 4 to 6 weeks, can convert back to oral therapy based on the above work-up and shared decision making with the patient but that could include a resumption of apixaban 5. While his COVID-19 infection was well within 49 weeks of these more recent events, it is not at all clear how that might impact upon management at this time. History of Present Illness Reason for Consultation: Recurrent venous thromboembolism events in less than 1 week after initiation of anticoagulation for DVT in a patient with a family history of thrombosis issues. Attending Physician: Mynor Brown MD History of Present Illness This consult was done electronically based on review of the entered records by the hospitalist and pulmonary teams. I have not been able to personally examine the patient nor elicit a history directly from him. Conclusions are therefore based on the data as presented by the record results of radiology and laboratory studies and the history and physical examinations of those other physicians 56-year-old non-smoker without a known history of cancer. Notes that he did have a left lower extremity DVT 2 years ago treated with 6 months of DOAC. His sister last year of complications of DVT/PE and his father apparently had a history of postoperative DVT. You have been diagnosed earlier this week with a right lower extremity DVT treated with initiation of apixaban. He presented early this morning with respiratory difficulties chest CT has multiple left-sided pulmonary emboli. He is apparently stabilizing on intravenous heparin. Of potential note he did have a COVID-19 infection in August of this year Allergies Allergy/AdvReac Type Severity Reaction Status Date / Time No Known Allergies Allergy Verified 12/07/21 01:29 Home Medications Medication Instructions Recorded Confirmed Type albuterol sulfate 90 mcg/actuation 2 puff inhalation BID PRN sob 04/04/22 04/04/22 History aerosol inhaler apixaban 5 mg tablet (Eliquis) 10 mg PO BID 04/04/22 04/04/22 History fluticasone propionate 230 1 inh inhalation BID 04/04/22 04/04/22 History mcg-salmeterol 21 mcg/actuation HFA inhaler (Advair HFA) montelukast 10 mg tablet 10 mg PO DAILY 04/04/22 04/04/22 History omeprazole 20 mg capsule,delayed 20 mg PO DAILY 04/04/22 04/04/22 History release Patient History Medical History (Updated 04/04/22 @ 13:52 by Arpan Mc MD) Acute cholecystitis Asthma Chronic coughing DVT of leg (deep venous thrombosis) Sleep apnea Social History Smoking Status: Never smoker Hx Alcohol Use: No Hx Substance Use: No Preferred Language: Gabonese Communication Ability: Effective 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 Examinations today both by pulmonary medicine and hospitalist do not describe any particularly concerning findings on thoracic or abdominal examination. Results & Data ([facility]) Vital Signs (Past 12 Hours) Vital Signs Temp Pulse Resp BP BP Pulse Ox Pulse Ox 04/04/22 19:19 37.2 C 94 H 18 115/76 93 04/04/22 16:08 37.1 C 94 H 17 129/87 93 04/04/22 16:06 95 H 16 96 04/04/22 14:21 88 20 141/85 H 99 04/04/22 09:38 90 16 114/83 94 04/04/22 09:33 96 O2 Del Method 04/04/22 19:19 Room Air 04/04/22 16:08 Room Air 04/04/22 16:06 Room Air 04/04/22 14:21 Room Air 04/04/22 09:38 Room Air 04/04/22 09:33 Laboratory Results Abnormal lab results 04/04/22 04/04/22 04/04/22 Range/Units 04:45 04:45 11:29 Neut # (Auto) 6.88 H (1.4-6.5) K/uL Immature Gran # (Auto) 0.04 H (0.00-0.02) K/uL APTT 63.2 H* (21.0-31.0) Seconds Glucose 125 H (70-99(Fasting)) mg/dl Diagnostic Findings Chest CTA 04/04/22 04:46 CT ANGIOGRAPHY OF THE CHEST, PULMONARY EMBOLUS PROTOCOL CLINICAL HISTORY: Dyspnea. COMPARISON STUDY: Chest radiograph December 29, 2020. TECHNIQUE: Following IV administration of 111 mL of Optiray, helical axial images of the chest were obtained utilizing the pulmonary embolus protocol. Maximal intensity projections and sagittal and coronal reformats were viewed on an independent 3D workstation. IV contrast was administered without complication. Automated exposure control was utilized for the study. A dose lowering technique was utilized adhering to the principles of ALARA. CT DOSE: 537.29 mGy.cm FINDINGS: Extensive left-sided pulmonary emboli are noted, including emboli within the distal left pulmonary artery. Emboli extend into the lobar and segmental branches of the left lung. A few small subsegmental right-sided pulmonary emboli are present. There is no CT evidence for right heart strain. There is no thoracic lymphadenopathy. A small left pleural effusion is noted. Subpleural groundglass opacity within the left lower lobe measuring 4.9 cm is suggestive of a pulmonary infarct. There is no right-sided pleural effusion. There is no pneumothorax. Additional subpleural groundglass opacities favor atelectasis. Gallbladder is surgically absent. There is a 2.9 cm medial segment left hepatic lobe cyst. IMPRESSION: 1. Extensive left-sided pulmonary emboli. A few subsegmental right-sided pulmonary emboli. 2. 4.9 cm subpleural left lower lobe opacity consistent with a pulmonary infarct. Small left pleural effusion. ACT 112: Negative or not required by law. Electronically signed by: Cordell Alcala M.D. 04/04/2022 8:17 AM Chest X-Ray 04/04/22 04:46 XR chest 1V portable CLINICAL HISTORY: Dyspnea. COMPARISON STUDY: Chest radiograph December 29, 2020. FINDINGS: Lung volumes are normal. Lungs are clear. There is no pneumothorax or pleural effusion. Cardiac size is normal. Mediastinal contours are normal. There is no evidence for pulmonary edema. IMPRESSION: No acute cardiopulmonary findings. ACT 112: Negative or not required by law. Electronically signed by: Cordell Alcala M.D. 04/04/2022 8:11 AM PG Care Time/CCT Total # of Minutes Spent Total Time Spent with Patient: Total time spent is greater than 50% in coordination of care (as documented) at patient's floor/unit and/or counseling patient: [place] [address] Inpt Consult Level 3 Patient Type New History Problem Focused Exam Problem Focused Medical Decision Making High Complexity Diagnoses Pulmonary emboli I26.99
[2022-04-05] MEDS: HEPARIN SODIUM/DEXTROSE 25,000 UNITS/500 ML BAG IV SCH ×2 (00:17→17:43)
[2022-04-05 01:36] LABS: Appearance Urine Clear (Clear); Bilirubin Urine Negative (Negative); Blood Urine Negative (Negative); Color Urine Yellow; Glucose Urine UA Negative (Negative); Ketones Urine Negative (Negative); Leukocyte Esterase Urine Negative (Negative); Nitrite Urine Negative (Negative); Protein Urine Negative (Negative); Specific Gravity Urine 1.017 (1.000-1.030); Urobilinogen Urine Negative (Negative)
[2022-04-05] MEDS: ACETAMINOPHEN 325 MG TAB PO PRN ×4 (02:16→18:05)
[2022-04-05 07:11] LABS: Hematocrit (blood only) 40.7 % (40.1-51.0); Mean Corpuscular Hemoglobin 30.2 pg (25.0-34.0); Mean Corpuscular Hgb Conc 34.4 g/dL (32.0-36.0); Mean Corpuscular Volume 87.7 fL (80.0-100.0); Mean Platelet Volume 10.5 fL (9.4-12.4); Platelet Count 211 K/uL (130-400); RDW Coefficient of Variation 11.9 % (11.5-14.5); RDW Standard Deviation 38.4 fL (36.4-46.3); Red Blood Count 4.64 M/uL (4.63-6.08); White Blood Count 8.51 K/ul (4.8-10.8)
[2022-04-05] MEDS: ALBUTEROL HFA 8 GM INHALER INH PRN (07:17)
[2022-04-05] MEDS: MONTELUKAST SODIUM 10 MG TABLET PO SCH (07:48)
[2022-04-05] MEDS: PANTOprazole 40 MG TAB PO SCH (07:48)
[2022-04-05] MEDS: FLUTICASONE/VILANTEROL 200/25MCG 14 PUFFS/INHALER INH SCH (07:51)
[2022-04-05 07:56] LABS: BUN Creatinine Ratio 10.6 (10-20); Calcium 8.1 mg/dl (8.5-10.1); Creatinine Clr Calc Pharmacy 77.7 ml/min; Est GFR (African American) 82.6 ml/min; Est GFR (Non-African American) 71.3 ml/min; Magnesium 2.1 mg/dl (1.7-2.4); Phosphorus 3.3 mg/dl (2.5-4.9)
[2022-04-05 08:25] LABS: Partial Thromboplastin Time 83.8 Seconds (21.0-31.0)
--- NOTE | 2022-04-05 09:29 | Pulmonology Progress Note ---
Date of Service April 05, 2022 Assessment & Plan (1) Pulmonary emboli: (2) Chronic coughing: (3) Sleep apnea: (4) Asthma: Plan CT chest 04/04/2022 personally reviewed: Small left-sided pleural effusion, dependent atelectasis bilateral lower lobes Left pulmonary artery clot, no right heart strain Mediastinal lymphadenopathy 2D echo 04/04/2022: EF 60-65%, grade 1 diastolic dysfunction, RV systolic function is normal -- Acute pulmonary embolism History of right lower extremity DVT diagnosed approximately a week ago Patient was started on Eliquis and took it approximately for 4 days and then presented to the hospital Repeat Doppler ultrasound done 04/05/2022 shows right-sided popliteal as well as tibial DVT. As per the patient it was a similar result which was done at [facility] -- History of DVT in the past August 2020 which was approximately 6-8 weeks after getting COVID-vaccine There is strong family history of clots in the father, sister. All of the clots in the family were provoked As per the patient he did have hyper coagulable work-up as an outpatient which was negative back in 2020 Would recommend a repeat hypercoagulable work to be done in 4 weeks. --Asthma and asthmatic bronchitis Not in acute exacerbation On high-dose Advair at home Continue with Breo while in the hospital --JOIE Continue with CPAP Plan: Follow-up repeat Doppler bilateral lower extremity It is difficult to ascertain whether it was failure of Eliquis given the Eliquis was given only for 4 days. Given this was the second episode of DVT/PE would recommend lifelong an ticoagulation. Therapeutic anticoagulation for 3-6 months and then prophylactic following that. I read Dr. May's consultation note. It is reasonable for the patient to be on Lovenox therapeutic dose for 4-6 weeks and transition back to DOACs. Please note the above document was generated using voice recognition software. It may contain grammatical, syntax or spelling errors.Any formal questions or concerns about the content, text or information contained within the body of thi s dictation should be directly addressed to the provider for clarification. Admission and Anticipated Discharge Date Admission Date: April 04, 2022 Subjective Patient seen and examined at bedside. Case was discussed with going front sight attacher No acute distress. No adverse events overnight. Patient was saturating 95 to 96% on room air. He did complain of chest pain when he takes deep breath on the left side. Denies any nausea or vomiting. Fair appetite. No hematuria, no hematochezia. Review of Systems Review of Systems: All systems reviewed & are unremarkable except as noted in Subjective Physical Exam Physical Exam: Constitutional: No acute distress HEENT: EOMI, PERRLA Respiratory system: Decreased air entry in the left lower side, no wheeze, no rhonchi, mild crackles left lower lobe CVS: S1-S2 positive, no murmurs or gallops Abdomen: Soft, nontender, nondistended, positive bowel sounds x4 Extremities: +2 pulses bilaterally radialis/ dorsalis pedis, no cyanosis, no edema Neuro: Awake alert oriented x3 Psych: Normal mood and affect G/U: No Casas Skin: no rashes, warm and dry Lymphatic: no cervical or axillary lymphadenopathy Results & Data Results & Data ([facility]) Vital Signs (Past 12 Hours) Vital Signs Temp Pulse Resp BP Pulse Ox O2 Del Method 04/05/22 08:00 36.8 C 95 H 20 137/87 94 Room Air 04/05/22 07:18 18 Room Air 04/05/22 04:00 37.2 C 81 18 128/75 95 BiPAP 04/04/22 23:34 Room Air 04/04/22 23:08 36.7 C 80 18 108/70 95 BiPAP Laboratory Results 04/05/22 06:42 04/05/22 06:42 PG Care Time/CCT Total # of Minutes Spent Total Time Spent with Patient: Total time spent is greater than 50% in coordination of care (as documented) at patient's floor/unit and/or counseling patient: Coding Level of Care Code 13208 Subseq Hosp Care Lvl 3 Diagnoses Pulmonary emboli I26.99 Chronic coughing R05.3 Sleep apnea G47.30 Asthma J45.909
[2022-04-05] MEDS ORDERED: COUGH DROP (SUGAR FREE) LOZ 24 LOZ/1 BOX BUCCAL PRN (10:19)
[2022-04-05] MEDS ORDERED: BENZONATATE 100 MG CAPSULE PO PRN (10:20)
--- NOTE | 2022-04-05 11:04 | XRay Report ---
XR chest 1V portable HISTORY: 56 years-old Male worsened cough, r/o pleural effusion acute cough COMPARISON: Chest radiograph April 04, 2022 TECHNIQUE: AP view of the chest FINDINGS: Cardiomediastinal and hilar silhouettes are within normal limits. There is no pneumothorax, pleural e ffusion or overt pulmonary edema. Linear left basilar opacity is new from prior. Degenerative changes of the shoulders and spine. IMPRESSION: Mild left basilar atelectasis with otherwise unremarkable exam. ACT 112: Negative or not required by law. The above report was generated using voice recognition software. It may contain grammatical, syntax o r spelling errors. Electronically signed by: Cristofer Jones M.D. 04/05/2022 11:03 AM
--- NOTE | 2022-04-05 12:13 | Ultrasound Report ---
BILATERAL LOWER EXTREMITY VENOUS DOPPLER CLINICAL HISTORY: History of DVT. COMPARISON STUDY: None available at time of interpretation. TECHNIQUE: Sonography of the deep venous system of the bilateral lower extremities was performed. Co mpression and augmentation were evaluated. FINDINGS: Right common femoral and superficial femoral veins are patent. There is no thrombus within these vessels. Note is made of deep venous thrombus within the right popliteal, posterior tibial and peroneal veins. There is no deep venous thrombus within the left lower extremity. IMPRESSION: 1. Deep venous thrombus within the right popliteal, posterior tibial and peroneal veins. 2. No deep venous thrombus within the left lower extremity. ACT 112: Negative or not required by law. Electronically signed by: Cordell Alcala M.D. 04/05/2022 12:12 PM
--- NOTE | 2022-04-05 12:20 | Hospitalist Progress Note ---
Date of Service April 05, 2022 Assessment & Plan (1) Pulmonary emboli: Plan: recent DVT diagnosed this week, was started on apixaban. Was already reporting SOB with exertion but then developed acute pain in left lower chest prompting admission and found to have pulmonary emboli with infarction. Remains on a heparin drip. Tachycardia has resolved. Will eventually transition to full dose Lovenox per Hematology recommendations but not yet. (2) Asthma: Plan: chronic controlled. Cont current inhaler therapy and montelukast. (3) Sleep apnea: Plan: Noncompliant with CPAP. OK wtih using in hospital and plans to bring his own machine from home. (4) CAD (coronary artery disease): Plan: coronary calcification noted on imaging. Per patient report he is supposed to take atorvastatin and baby aspirin. Will review chart and discuss prior to discharge. Heparin Full Code Dispo-to PCU Lorene Dumont DO [facility] Hospitalist Admission and Anticipated Discharge Date Admission Date: April 04, 2022 Subjective 56 yo M with personal and family history of DVT presents with acute bilateral PE with pulmonary infarction On heparin and doing well, still with sharp left lower chest pain especially with deep breathing Otherwise no issues I reviewed his echocardiogram results with him and we also discussed his hypercoagulable work-up which was normal in August 2019. Cough is somewhat progressed today and left chest pain is slightly worse feels weak all over Review of Systems Review of Systems: All systems were reviewed and negative except as indicated on subjective above. Physical Exam Physical Exam: CONSTITUTIONAL: WNWD, vitals as above, generally well- appearing, NAD EYES: normal conjunctivae, no scleral icterus ENT: external ear and nose normal, MMM, oxygenating well on room air. NECK: trachea midline RESPIRATORY: clear except for crackles in the left base and slightly in the right base also. No rales or wheezes, respiratory effort CARDIOVASCULAR: regular rate and rhythm, S1 and 2 heard without murmurs, gallops or rubs, no JVD, no peripheral edema CHEST: inspection of chest was normal GASTROINTESTINAL: soft, nontender, ND, no guarding MUSCULOSKELETAL: strength 5/5 throughout, head is normocephalic and atraumatic SKIN: warm and dry NEUROLOGIC: CN 2-12 grossly intact, no sensory deficit, normal cognition, no rmal speech, no tremor, no focal deficit. PSYCHIATRIC: alert cooperative and oriented to person, place and time. Results & Data Results & Data ([facility]) Vital Signs (Past 12 Hours) Vital Signs Temp Pulse Resp BP Pulse Ox O2 Del Method 04/05/22 11:38 36.8 C 90 19 125/81 97 Room Air 04/05/22 08:00 Room Air 04/05/22 08:00 36.8 C 95 H 20 137/87 94 Room Air 04/05/22 07:18 18 Room Air 04/05/22 04:00 37.2 C 81 18 128/75 95 BiPAP Laboratory Results Short CBC 04/05/22 Range/Units 06:42 WBC 8.51 (4.8-10.8) K/ul Hgb 14.0 (14.0-18.0) g/dl Hct 40.7 (40.1-51.0) % Plt Count 211 (130-400) K/uL BMP 04/05/22 06:42 Sodium 138 Potassium 4.0 Chloride 103 Carbon Dioxide 30 BUN 12 Creatinine 1.13 Glucose 120 H Calcium 8.1 L Urine 04/05/22 Range/Units 01:05 Urine Color Yellow Urine Appearance Clear (Clear) Urine pH 6.0 (4.5-7.5) Ur Specific Jenkins 1.017 (1.000-1.030) Urine Protein Negative (Negative) Urine Glucose (UA) Negative (Negative) Diagnostic Findings Venous Doppler Study 04/05/22 09:28 BILATERAL LOWER EXTREMITY VENOUS DOPPLER CLINICAL HISTORY: History of DVT. COMPARISON STUDY: None available at time of interpretation. TECHNIQUE: Sonography of the deep venous system of the bilateral lower extremities was performed. Compression and augmentation were evaluated. FINDINGS: Right common femoral and superficial femoral veins are patent. There is no thrombus within these vessels. Note is made of deep venous thrombus within the right popliteal, posterior tibial and peroneal veins. There is no deep venous thrombus within the left lower extremity. IMPRESSION: 1. Deep venous thrombus within the right popliteal, posterior tibial and peroneal veins. 2. No deep venous thrombus within the left lower extremity. ACT 112: Negative or not required by law. Electronically signed by: Cordell Alcala M.D. 04/05/2022 12:12 PM Chest X-Ray 04/05/22 10:20 XR chest 1V portable HISTORY: 56 years-old Male worsened cough, r/o pleural effusion acute cough COMPARISON: Chest radiograph April 04, 2022 TECHNIQUE: AP view of the chest FINDINGS: Cardiomediastinal and hilar silhouettes are within normal limits. There is no pneumothorax, pleural effusion or overt pulmonary edema. Linear left basilar opacity is new from prior. Degenerative changes of the shoulders and spine. IMPRESSION: Mild left basilar atelectasis with otherwise unremarkable exam. ACT 112: Negative or not required by law. The above report was generated using voice recognition software. It may contain grammatical, syntax or spelling errors. Electronically signed by: Cristofer Jones M.D. 04/05/2022 11:03 AM Medications Administered Current Inpatient Medications Acetaminophen (Acetaminophen 325 Mg Tab) 650 mg PO Q4H PRN PRN Reason: Pain or Fever Stop: 05/04/22 06:39 Last Admin: 04/05/22 11:37 Dose: 650 mg Al Hydrox/Mg Hydrox/Simethicone (Aluminum/Magnesium Susp 30 Ml Udc) 15 ml PO Q4H PRN PRN Reason: Dyspepsia Stop: 05/04/22 06:39 Albuterol (Albuterol Hfa 8 Gm Inhaler) 2 puffs INH Q6 PRN PRN Reason: SOB/COUGH Stop: 05/04/22 09:28 Last Admin: 04/05/22 07:17 Dose: 2 puffs Benzonatate (Benzonatate 100 Mg Capsule) 100 mg PO TID PRN PRN Reason: cough Stop: 05/05/22 13:59 Fluticasone/Vilanterol (Fluticasone/Vilanterol 200/25mcg 14 Puffs/Inhaler) 1 puffs INH DAILY ALEX Stop: 05/04/22 09:59 Last Admin: 04/05/22 07:51 Dose: 1 puffs Guaifenesin/Codeine Phosphate (Guaifenesin/Codeine 200mg/20mg 10ml Udc) 10 ml PO Q6H PRN PRN Reason: Cough Stop: 05/05/22 10:18 Last Admin: 04/05/22 11:38 Dose: 10 ml Heparin Sodium/Dextrose (Heparin Sodium/Dextrose) 25,000 units in 500 mls @ 27 mls/hr IV .[id number] ALEX; Protocol Stop: 05/04/22 05:29 Last Titration: 04/05/22 08:30 Dose: 1,350 units/hr, 27 mls/hr Magnesium Hydroxide (Magnesium Hydroxide Susp 30 Ml Udc) 30 ml PO Q12H PRN PRN Reason: Constipation Stop: 05/04/22 06:39 Menthol (Cough Drop (Sugar Free) Zainab 24 Zainab/1 Box) 1 zainab BUCCAL Q4H PRN PRN Reason: Sore Throat/cough Stop: 05/05/22 10:18 Last Admin: 04/05/22 11:38 Dose: 1 zainab Montelukast Sodium (Montelukast Sodium 10 Mg Tablet) 10 mg PO DAILY [facility] Stop: 05/04/22 09:28 Last Admin: 04/05/22 07:48 Dose: 10 mg Pantoprazole Sodium (Pantoprazole 40 Mg Tab) 40 mg PO QAM [facility] Stop: 05/04/22 09:28 Last Admin: 04/05/22 07:48 Dose: 40 mg Polyethylene Glycol (Polyethylene (Miralax) 17 Gm Pack) 17 gm PO DAILY PRN PRN Reason: Constipation Stop: 05/04/22 06:39
[2022-04-05 15:52] LABS: Partial Thromboplastin Ratio 1.8
[2022-04-05 15:56] LABS: Partial Thromboplastin Time 48.9 Seconds (21.0-31.0)
[2022-04-06 07:41] LABS: Partial Thromboplastin Ratio 1.9
[2022-04-06 07:48] LABS: Partial Thromboplastin Time 52.9 Seconds (21.0-31.0)
[2022-04-06] MEDS: FLUTICASONE/VILANTEROL 200/25MCG 14 PUFFS/INHALER INH SCH (08:44)
[2022-04-06] MEDS: MONTELUKAST SODIUM 10 MG TABLET PO SCH (08:44)
[2022-04-06] MEDS: PANTOprazole 40 MG TAB PO SCH (08:44)
[2022-04-06] MEDS: HEPARIN SODIUM/DEXTROSE 25,000 UNITS/500 ML BAG IV SCH (10:13)
--- NOTE | 2022-04-06 12:23 | Pulmonology Progress Note ---
Date of Service April 06, 2022 Assessment & Plan (1) Pulmonary emboli: (2) Chronic coughing: (3) Sleep apnea: (4) Asthma: Plan CT chest 04/04/2022 personally reviewed: Small left-sided pleural effusion, dependent atelectasis bilateral lower lobes Left pulmonary artery clot, no right heart strain Mediastinal lymphadenopathy 2D echo 04/04/2022: EF 60-65%, grade 1 diastolic dysfunction, RV systolic function is normal -- Acute pulmonary embolism History of right lower extremity DVT diagnosed approximately a week ago Patient was started on Eliquis and took it approximately for 4 days and then presented to the hospital Repeat Doppler ultrasound done 04/05/2022 shows right-sided popliteal as well as tibial DVT. As per the patient it was a similar result which was done at [facility] -- History of DVT in the past August 2020 which was approximately 6-8 weeks after getting COVID-vaccine There is strong family history of clots in the father, sister. All of the clots in the family were provoked As per the patient he did have hyper coagulable work-up as an outpatient which was negative back in 2020 Would recommend a repeat hypercoagulable work to be done in 4 weeks. --Asthma and asthmatic bronchitis Not in acute exacerbation On high-dose Advair at home Continue with Breo while in the hospital --JOIE Continue with CPAP Plan: Continue with heparin drip till the plan is made regarding the Lovenox subcu Would recommend to check for oxygen requirement prior to discharge Given this was the second episode of DVT/PE would recommend lifelong an ticoagulation. Therapeutic anticoagulation for 3-6 months and then prophylactic following that. Please note the above document was generated using voice recognition software. It may contain grammatical, syntax or spelling errors.Any formal questions or concerns about the content, text or information contained within the body of this dictation should be directly addressed to the provider for clarification. Admission and Anticipated Discharge Date Admission Date: April 04, 2022 Subjective Patient seen and examined at bedside. NAD, BREANN overnight. Overall patient says he is feeling better. Saturation was 97% on room air. Chest pain has improved. He still complains of coughing when he takes deep breath in and mild left-sided chest pain No nausea or vomiting, fair appetite. Denies any headache, no blurry vision Review of Systems Review of Systems: All systems reviewed & are unremarkable except as noted in Subjective Physical Exam Physical Exam: Constitutional: No acute distress HEENT: EOMI, PERRLA Respiratory system: Decreased air entry in the left lower side, no wheeze, no rhonchi, mild crackles left lower lobe CVS: S1-S2 positive, no murmurs or gallops Abdomen: Soft, nontender, nondistended, positive bowel sounds x4 Extremities: +2 pulses bilaterally radialis/ dorsalis pedis, no cyanosis, no edema Neuro: Awake alert oriented x3 Psych: Normal mood and affect G/U: No Casas Skin: no rashes, warm and dry Lymphatic: no cervical or axillary lymphadenopathy Results & Data Results & Data ([facility]) Vital Signs (Past 12 Hours) Vital Signs Temp Pulse Resp BP Pulse Ox O2 Del Method 04/06/22 11:35 36.9 C 105 H 18 119/79 95 Room Air 04/06/22 10:00 Room Air 04/06/22 08:24 36.6 C 105 H 16 136/90 93 Room Air 04/06/22 03:56 36.9 C 80 17 127/86 95 BiPAP 04/06/22 02:47 36.9 C 92 H 18 126/81 95 BiPAP Laboratory Results 04/05/22 06:42 04/05/22 06:42 PG Care Time/CCT Total # of Minutes Spent Total Time Spent with Patient: Total time spent is greater than 50% in coordination of care (as documented) at patient's floor/unit and/or counseling patient: Coding Level of Care Code 52757 Subseq Hosp Care Lvl 2 Diagnoses Pulmonary emboli I26.99 Chronic coughing R05.3 Sleep apnea G47.30 Asthma J45.909
--- NOTE | 2022-04-06 14:31 | Hospitalist Progress Note ---
Date of Service April 06, 2022 Assessment & Plan (1) Pulmonary emboli: Plan: recent DVT diagnosed this week, was started on apixaban. Was already reporting SOB with exertion but then developed acute pain in left lower chest prompting admission and found to have pulmonary emboli with infarction. Initial tachycardia resolved. Transitioned off heparin to full dose Lovenox per hematology recommendations. We will plan to continue full dose Lovenox for 4 to 6 weeks and follow factor Xa levels in outpatient [facility] clinic. Consult request needs to be sent prior to discharge. Will need to check cost of Lovenox for patient prior to discharge. He also has a DVT with some post thrombotic syndrome indicated by pain and soreness in the right lower extremity. There is no maria luz swelling present. Teds ordered. (2) Asthma: Plan: chronic controlled. Cont current inhaler therapy and montelukast. (3) Sleep apnea: Plan: Feels improved since using CPAP nightly. He will continue using his home machine upon discharge. (4) CAD (coronary artery disease): Plan: coronary calcification noted on imaging. Per patient report he is supposed to take atorvastatin and baby aspirin. Encourage compliance with outpatient provider recommendations. Heparin Full Code [facility] Admission and Anticipated Discharge Date Admission Date: April 04, 2022 Subjective 56-year-old man admitted for acute pulmonary embolus with pulmonary infarction. He spiked a temp overnight This was improved with Tylenol Cough is still present but improved Left sided chest pain is also improved today. He is ambulating more but still feels weak. at bedside with patient today. Transitioning to Lovenox We discussed getting him situated into the [facility] clinic for ongoing Lovenox therapy and following of factor Xa levels Cost check needed prior to discharge. is adept at giving subcutaneous injections Review of Systems Review of Systems: All systems were reviewed and negative except as indicated on subjective above. Physical Exam Physical Exam: CONSTITUTIONAL: WNWD, vitals as above, generally well- appearing, NAD EYES: normal conjunctivae, no scleral icterus ENT: external ear and nose normal, MMM, oxygenating well on room air. NECK: trachea midline RESPIRATORY: clear to auscultation throughout. No rales or wheezes, respiratory effort CARDIOVASCULAR: regular rate and rhythm, S1 and 2 heard without murmurs, gallops or rubs, no JVD, no peripheral edema CHEST: inspection of chest was normal GASTROINTESTINAL: soft, nontender, ND, no guarding MUSCULOSKELETAL: strength 5/5 throughout, head is normocephalic and atraumatic SKIN: warm and dry NEUROLOGIC: CN 2-12 grossly intact, no sensory deficit, normal cognition, normal speech, no tremor, no focal deficit. PSYCHIATRIC: alert cooperative and oriented to person, place and time. Results & Data Results & Data ([facility]) Vital Signs (Past 12 Hours) Vital Signs Temp Pulse Resp BP Pulse Ox O2 Del Method 04/06/22 11:35 36.9 C 105 H 18 119/79 95 Room Air 04/06/22 10:00 Room Air 04/06/22 08:24 36.6 C 105 H 16 136/90 93 Room Air 04/06/22 03:56 36.9 C 80 17 127/86 95 BiPAP 04/06/22 02:47 36.9 C 92 H 18 126/81 95 BiPAP Medications Administered Current Inpatient Medications Acetaminophen (Acetaminophen 325 Mg Tab) 650 mg PO Q4H PRN PRN Reason: Pain or Fever Stop: 05/04/22 06:39 Last Admin: 04/05/22 18:05 Dose: 650 mg Al Hydrox/Mg Hydrox/Simethicone (Aluminum/Magnesium Susp 30 Ml Udc) 15 ml PO Q4H PRN PRN Reason: Dyspepsia Stop: 05/04/22 06:39 Albuterol (Albuterol Hfa 8 Gm Inhaler) 2 puffs INH Q6 PRN PRN Reason: SOB/COUGH Stop: 05/04/22 09:28 Last Admin: 04/05/22 07:17 Dose: 2 puffs Benzonatate (Benzonatate 100 Mg Capsule) 100 mg PO TID PRN PRN Reason: cough Stop: 05/05/22 13:59 Fluticasone/Vilanterol (Fluticasone/Vilanterol 200/25mcg 14 Puffs/Inhaler) 1 puffs INH DAILY ALEX Stop: 05/04/22 09:59 Last Admin: 04/06/22 08:44 Dose: 1 puffs Guaifenesin/Codeine Phosphate (Guaifenesin/Codeine 200mg/20mg 10ml Udc) 10 ml PO Q6H PRN PRN Reason: Cough Stop: 05/05/22 10:18 Last Admin: 04/05/22 11:38 Dose: 10 ml Heparin Sodium/Dextrose (Heparin Sodium/Dextrose) 25,000 units in 500 mls @ 27 mls/hr IV .[id number] [facility]; Protocol Stop: 05/04/22 05:29 Last Admin: 04/06/22 10:13 Dose: 1,350 units/hr, 27 mls/hr Magnesium Hydroxide (Magnesium Hydroxide Susp 30 Ml Udc) 30 ml PO Q12H PRN PRN Reason: Constipation Stop: 05/04/22 06:39 Menthol (Cough Drop (Sugar Free) Zainab 24 Zainab/1 Box) 1 zainab BUCCAL Q4H PRN PRN Reason: Sore Throat/cough Stop: 05/05/22 10:18 Last Admin: 04/05/22 11:38 Dose: 1 zainab Montelukast Sodium (Montelukast Sodium 10 Mg Tablet) 10 mg PO DAILY [facility] Stop: 05/04/22 09:28 Last Admin: 04/06/22 08:44 Dose: 10 mg Pantoprazole Sodium (Pantoprazole 40 Mg Tab) 40 mg PO QAM [facility] Stop: 05/04/22 09:28 Last Admin: 04/06/22 08:44 Dose: 40 mg Polyethylene Glycol (Polyethylene (Miralax) 17 Gm Pack) 17 gm PO DAILY PRN PRN Reason: Constipation Stop: 05/04/22 06:39
[2022-04-06] MEDS ORDERED: HEPARIN STOP ORDER ONE (19:00)
[2022-04-06] MEDS: ENOXAPARIN 100 MG/1ML SYR SQ SCH (20:09)
[2022-04-07] MEDS: ENOXAPARIN 100 MG/1ML SYR SQ SCH (07:40)
[2022-04-07 08:47] LABS: Hematocrit (blood only) 43.8 % (40.1-51.0); Hemoglobin 14.9 g/dl (14.0-18.0); Mean Corpuscular Volume 88.1 fL (80.0-100.0); Mean Platelet Volume 10.8 fL (9.4-12.4); Platelet Count 267 K/uL (130-400); RDW Coefficient of Variation 11.9 % (11.5-14.5); RDW Standard Deviation 37.9 fL (36.4-46.3); Red Blood Count 4.97 M/uL (4.63-6.08); White Blood Count 7.19 K/ul (4.8-10.8)
[2022-04-07 09:37] LABS: BUN Creatinine Ratio 11.5 (10-20); Calcium 8.9 mg/dl (8.5-10.1); Creatinine Clr Calc Pharmacy 78.3 ml/min; Est GFR (African American) 82.6 ml/min; Est GFR (Non-African American) 71.3 ml/min; Potassium 3.7 mmol/L (3.5-5.1)
[2022-04-07] MEDS: PANTOprazole 40 MG TAB PO SCH (09:43)
[2022-04-07] MEDS: MONTELUKAST SODIUM 10 MG TABLET PO SCH (09:43)
[2022-04-07] MEDS: FLUTICASONE/VILANTEROL 200/25MCG 14 PUFFS/INHALER INH SCH (09:43)
--- NOTE | 2022-04-07 09:52 | Hospitalist Progress Note ---
Date of Service April 07, 2022 Assessment & Plan (1) Pulmonary emboli: Plan: Recent DVT diagnosed this week, was started on apixaban. Was already reporting SOB with exertion but then developed acute pain in left lower chest prompting admission and found to have pulmonary emboli with infarction. Transitioned off heparin to full dose Lovenox per hematology recommendations. We will plan to continue full dose Lovenox for 4 to 6 weeks and follow factor Xa levels in outpatient [facility] clinic. Consult request needs to be sent prior to discharge. He also has a DVT with some post thrombotic syndrome indicated by pain and soreness in the right lower extremity. Clinically much better without any pleuritic chest pain and the right leg pain is diminished Appreciate pulmonary input and recommendation He has been ambulating without any symptoms Will be discharged this afternoon Lovenox 100 mg twice daily will be continued for 4 weeks and then back on Eliquis Refer to [facility] clinic Will need to see mems device scientist as an outpatient (2) Asthma: Plan: Chronic controlled. Cont current inhaler therapy and montelukast. No signs and or symptoms of exacerbation (3) Sleep apnea: Plan: Feels improved since using CPAP nightly. He will continue using his home machine upon discharge. (4) CAD (coronary artery disease): Plan: Coronary calcification noted on imaging. Per patient report he is supposed to take atorvastatin and baby aspirin. Encourage compliance with outpatient provider recommendations. Full Code Dispo-to PCU Admission and Anticipated Discharge Date Admission Date: April 04, 2022 Subjective 04/07/2022 The patient was seen and examined in telemetry unit He has been complaining of chronic cough but denies any more chest pain His pain in the right calf has improved Denies any other significant symptoms Review of Systems Review of Systems: All systems reviewed and are unremarkable except as noted below Physical Exam Physical Exam: Sitting at the edge of the bed without any acute distress Constitutional: well developed, well nourished and + obese; not ill appearing Eyes: PERRL, conjunctivae normal, anicteric sclerae ENMT: external ear and nose normal, oropharynx normal Neck: trachea midline, no thyromegaly Respiratory: normal respiratory effort; no respiratory distress Auscultation: lungs clear to auscultation bilaterally and + crackles (Minimal crackles bibasally) Cardiovascular: Rate/Rhythm: regular rate and regular rhythm; not tachycardic Heart Sounds: normal S1 and normal S2; no murmur Extremities: no edema Gastrointestinal (Abdomen): Inspection/Auscultation: abdomen normal to inspection and normal bowel sounds; abdomen not distended Percussion/Palpation: abdomen soft; abdomen nontender Musculoskeletal: No acute arthritis in any joint Neurologic: normal touch/pain/proprioception and moves all extremities; no focal motor deficits Psychiatric: A+Ox3, euthymic affect Results & Data Results & Data ([facility]) Vital Signs (Past 12 Hours) Vital Signs Temp Pulse Resp BP Pulse Ox O2 Del Method 04/07/22 07:12 36.7 C 84 16 135/91 95 Room Air 04/07/22 03:12 36.6 C 76 14 126/85 94 CPAP 04/06/22 22:40 37.3 C 85 16 120/75 96 CPAP Laboratory Results Short CBC 04/07/22 Range/Units 07:59 WBC 7.19 (4.8-10.8) K/ul Hgb 14.9 (14.0-18.0) g/dl Hct 43.8 (40.1-51.0) % Plt Count 267 (130-400) K/uL BMP 04/07/22 07:59 Sodium 138 Potassium 3.7 Chloride 102 Carbon Dioxide 27 BUN 13 Creatinine 1.13 Glucose 128 H Calcium 8.9 Medications Administered Current Inpatient Medications Acetaminophen (Acetaminophen 325 Mg Tab) 650 mg PO Q4H PRN PRN Reason: Pain or Fever Stop: 05/04/22 06:39 Last Admin: 04/05/22 18:05 Dose: 650 mg Al Hydrox/Mg Hydrox/Simethicone (Aluminum/Magnesium Susp 30 Ml Udc) 15 ml PO Q4H PRN PRN Reason: Dyspepsia Stop: 05/04/22 06:39 Albuterol (Albuterol Hfa 8 Gm Inhaler) 2 puffs INH Q6 PRN PRN Reason: SOB/COUGH Stop: 05/04/22 09:28 Last Admin: 04/05/22 07:17 Dose: 2 puffs Benzonatate (Benzonatate 100 Mg Capsule) 100 mg PO TID PRN PRN Reason: cough Stop: 05/05/22 13:59 Enoxaparin Sodium (Enoxaparin 100 Mg/1ml Syr) 100 mg SQ Q12H ALEX Stop: 05/06/22 18:59 Last Admin: 04/07/22 07:40 Dose: 100 mg Fluticasone/Vilanterol (Fluticasone/Vilanterol 200/25mcg 14 Puffs/Inhaler) 1 puffs INH DAILY ALEX Stop: 05/04/22 09:59 Last Admin: 04/07/22 09:43 Dose: 1 puffs Guaifenesin/Codeine Phosphate (Guaifenesin/Codeine 200mg/20mg 10ml Udc) 10 ml PO Q6H PRN PRN Reason: Cough Stop: 05/05/22 10:18 Last Admin: 04/05/22 11:38 Dose: 10 ml Magnesium Hydroxide (Magnesium Hydroxide Susp 30 Ml Udc) 30 ml PO Q12H PRN PRN Reason: Constipation Stop: 05/04/22 06:39 Menthol (Cough Drop (Sugar Free) Zainab 24 Zainab/1 Box) 1 zainab BUCCAL Q4H PRN PRN Reason: Sore Throat/cough Stop: 05/05/22 10:18 Last Admin: 04/05/22 11:38 Dose: 1 zainab Montelukast Sodium (Montelukast Sodium 10 Mg Tablet) 10 mg PO DAILY ALEX Stop: 05/04/22 09:28 Last Admin: 04/07/22 09:43 Dose: 10 mg Pantoprazole Sodium (Pantoprazole 40 Mg Tab) 40 mg PO QAM ALEX Stop: 05/04/22 09:28 Last Admin: 04/07/22 09:43 Dose: 40 mg Polyethylene Glycol (Polyethylene (Miralax) 17 Gm Pack) 17 gm PO DAILY PRN PRN Reason: Constipation Stop: 05/04/22 06:39
--- NOTE | 2022-04-07 12:37 | Pulmonary Consultation ---
Date of Consultation April 07, 2022 Assessment & Plan (1) Pulmonary emboli: (2) Chronic coughing: (3) Sleep apnea: (4) Asthma: Plan -- Acute pulmonary embolism with pulmonary infarction History of right lower extremity DVT diagnosed approximately a week ago Patient was started on Eliquis and took it approximately for 4 days and then presented to the hospital - Repeat Doppler ultrasound done 04/05/2022 shows right-sided popliteal as well as tibial DVT. As per the patient it was a similar result which was [facility] - 2D echo 04/04/2022: EF 60-65%, grade 1 diastolic dysfunction, RV systolic function is normal- without evidence of right heart strain - is without any hemodynamic compromise through hospital course - Patient transitioned to Lovenox weight based on at 2100- recommend Haematology consultation for managing further anticoagulation transition- difficult to call this failure as he received 4 doses of Eliquis prior- regardless of what agent he transitions to will need lifelong anticoagulation. - Left sided lateral pleuritic pain is RESOVLVED- secondary to pulmonary infarct- continue with ICS and deep breathing at home -- History of DVT in the past August 2020 which was approximately 6-8 weeks after getting COVID-vaccine There is strong family history of clots in the father, sister. All of the clots in the family were provoked As per the patient he did have hyper coagulable work-up as an outpatient which was negative back in 2020 Would recommend a repeat hypercoagulable work to be done in 4 weeks. --Asthma and asthmatic bronchitis Not in acute exacerbation On high-dose Advair at home as well as PAO inhalers and nebulizer if needed - uses rescue inhaler 2-3 times per week, is without any night time awakenings, Continue with Breo while in the hospital- can transition back to home Advair and PAO upon discharge --JOIE Continue with CPAP- compliant and no issues Plan: recommend Haematology consultation for managing further anticoagulation transition- lifelong therapy advised Transitioned to Lovenox by primary service- patient comfortable with injections repeat hypercoagulable work to be done in 4 weeks. No change in inhalers Would recommend to check for oxygen requirement prior to discharge Thank you for allowing us to participate in this patient's care. Please see my Attending's documentation for any additions. Supervising Physician Co-Signing Physician Notes I saw and evaluated the patient with Johan Pickett, and agree with findings and plan as documented in the note. Patient seen and examined at bedside. No acute distress, no adverse events overnight. Patient said there is significant improvement when it comes to his chest pain. Able to take deep breaths without any significant issues. Coughing still bothersome especially when he takes deep breath No headache, no nausea, no vomiting Fair appetite. No hematuria, no hematochezia. Constitutional: No acute distress HEENT: EOMI, PERRLA Respiratory system: Decreased air entry in the left lower side, no wheeze, no rhonchi, mild crackles left lower lobe CVS: S1-S2 positive, no murmurs or gallops Abdomen: Soft, nontender, nondistended, positive bowel sounds x4 Extremities: +2 pulses bilaterally radialis/ dorsalis pedis, no cyanosis, no edema Neuro: Awake alert oriented x3 Psych: Normal mood and affect G/U: No Casas Plan: Patient has been bridged to Lovenox. Recommend hypercoagulable work-up as an outpatient in couple of months Outpatient follow-up with hematology Given this was the second episode of DVT/PE would recommend lifelong anticoagulation. Therapeutic anticoagulation for 3-6 months and then prophylactic following that. Case was discussed with Dr. Hassan Please note the above document was generated using voice recognition software. It may contain grammatical, syntax or spelling errors.Any formal questions or concerns about the content, text or information contained within the body of this dictation should be directly addressed to the provider for clarification. History of Present Illness Reason for Consultation: pulmonary embolism Requesting Physician: Kevin Lowe Attending Physician: Brandon Hassan MD History of Present Illness 56 YOM admitted to hospitalist service for complaints of dyspnea and right leg pain. Patient was diagnosed with VTE in his right leg and was started on Eliquis on 29December. He came in on 04/04/22 for lateral chest pain and dyspnea that woke him up from sleep. He was diagnosed with PE at that time with pulmonary infarct. Patient has history of unprovoked DVT approx 2 years ago. He also has family history of DVTs in Mom, Dad, Sister, and Brother- these appear to have been provoked with surgical procedures, or with OCP use and smoking. He reports having previous hypercoag panel performed that was negative. Patient is a Primary Care Physician. Does not smoke. Does use CPAP at home of 8cm H20 and reports compliance as he also brought this to hospital with him. Allergies Allergy/AdvReac Type Severity Reaction Status Date / Time No Known Allergies Allergy Verified 12/07/21 01:29 Home Medications Medication Instructions Recorded Confirmed Type albuterol sulfate 90 mcg/actuation 2 puff inhalation BID PRN sob 04/04/22 04/04/22 History aerosol inhaler fluticasone propionate 230 1 inh inhalation BID 04/04/22 04/04/22 History mcg-salmeterol 21 mcg/actuation HFA inhaler (Advair HFA) montelukast 10 mg tablet 10 mg PO DAILY 04/04/22 04/04/22 History omeprazole 20 mg capsule,delayed 20 mg PO DAILY 04/04/22 04/04/22 History release benzonatate 100 mg capsule 100 mg PO TID PRN cough 10 days 04/07/22 Rx #30 caps enoxaparin 100 mg/mL subcutaneous 100 mg subcut Q12H 30 days #60 mL 04/07/22 Rx syringe Patient History Medical History Acute cholecystitis Asthma Chronic coughing DVT of leg (deep venous thrombosis) Sleep apnea Family History Mother Deep vein thrombosis Sister , suspected pulmonary embolism as sudden and while off anticoagulation Deep vein thrombosis Father Deep vein thrombosis Brother Deep vein thrombosis Social History Smoking Status: Never smoker Hx Alcohol Use: No Hx Substance Use: No Preferred Language: Comoran Communication Ability: Effective Factory Expert Required: No Beliefs That Will Affect Care: Baptist Baptist Beliefs: Spiritism Current Living Situation: Spouse Feels Safe at Home: Yes Assistive Devices: None Review of Systems Review of Systems: REVIEW OF SYSTEMS: Constitutional: No fever, sweats or chills Eyes: No diplopia, no worsening or blurred vision ENT: normal hearing, no trouble swallowing Respiratory: (+) cough, sputum, dyspnea at rest or on exertion- resolved Cardiovascular: (+) lateral chest pain, tightness or palpitations Abdomen: No pain, nausea, vomiting, diarrhea or constipation Musculoskeletal: No joint pain, calf pain, swelling Neurologic: No weakness, numbness/tingling, or balance problems Psychiatric: No anxiety or depression Skin: No rash or itch Physical Exam Physical Exam: PHYSICAL EXAM: General: awake, alert, no apparent distress Head: Normocephalic, atraumatic ENT: PERRL, EOMI, no pharyngeal exudate, mucous membranes moist Neuro: AAO x 3, speech clear and appropriate, strength intact bilaterally 5/5, sensation intact and equal all extremities and dermatomes, no pronator drift Chest: equal rise and fall of the chest, no accessory muscle use, no heaves or thrills, end expiratory wheeze in upper airway, clear otherwise Cardiac: Regular rate and rhythm, telemetry reviewed- NSR, skin warm dry, cap refill <3 seconds, peripheral pulses +2 no JVD, no murmur, no JVD, no edema GI: NABS x 4 quadrants, soft, nontender to palpation, no rebound, guarding or tenderness : Spontaneously voiding, no pain, no CVA tenderness, Extremities: Normal inspection, no peripheral edema or erythema, calfs nontender to palpation Psych: Normal mood and affect Skin: no rash or erythema Results & Data Results & Data ([facility]) Vital Signs (Past 12 Hours) Vital Signs Temp Pulse Pulse Resp BP Pulse Ox O2 Del Method 04/07/22 06:00 76 04/07/22 11:04 36.9 C 85 18 120/82 96 Room Air 04/07/22 07:12 36.7 C 84 16 135/91 95 Room Air 04/07/22 03:12 36.6 C 76 14 126/85 94 CPAP Laboratory Results Abnormal lab results 04/07/22 Range/Units 07:59 Glucose 128 H (70-99(Fasting)) mg/dl Diagnostic Findings Chest CTA 04/04/22 04:46 CT ANGIOGRAPHY OF THE CHEST, PULMONARY EMBOLUS PROTOCOL CLINICAL HISTORY: Dyspnea. COMPARISON STUDY: Chest radiograph December 29, 2020. TECHNIQUE: Following IV administration of 111 mL of Optiray, helical axial images of the chest were obtained utilizing the pulmonary embolus protocol. Maximal intensity projections and sagittal and coronal reformats were viewed on an independent 3D workstation. IV contrast was administered without complication. Automated exposure control was utilized for the study. A dose lowering technique was utilized adhering to the principles of ALARA. CT DOSE: 537.29 mGy.cm FINDINGS: Extensive left-sided pulmonary emboli are noted, including emboli within the distal left pulmonary artery. Emboli extend into the lobar and segmental branches of the left lung. A few small subsegmental right-sided pulmonary emboli are present. There is no CT evidence for right heart strain. There is no thoracic lymphadenopathy. A small left pleural effusion is noted. Subpleural groundglass opacity within the left lower lobe measuring 4.9 cm is suggestive of a pulmonary infarct. There is no right-sided pleural effusion. There is no pneumothorax. Additional subpleural groundglass opacities favor atelectasis. Gallbladder is surgically absent. There is a 2.9 cm medial segment left hepatic lobe cyst. IMPRESSION: 1. Extensive left-sided pulmonary emboli. A few subsegmental right-sided pulmonary emboli. 2. 4.9 cm subpleural left lower lobe opacity consistent with a pulmonary infarct. Small left pleural effusion. ACT 112: Negative or not required by law. Electronically signed by: Cordell Alcala M.D. 04/04/2022 8:17 AM Chest X-Ray 04/04/22 04:46 XR chest 1V portable CLINICAL HISTORY: Dyspnea. COMPARISON STUDY: Chest radiograph December 29, 2020. FINDINGS: Lung volumes are normal. Lungs are clear. There is no pneumothorax or pleural effusion. Cardiac size is normal. Mediastinal contours are normal. There is no evidence for pulmonary edema. IMPRESSION: No acute cardiopulmonary findings. ACT 112: Negative or not required by law. Electronically signed by: Cordell Alcala M.D. 04/04/2022 8:11 AM Venous Doppler Study 04/05/22 09:28 BILATERAL LOWER EXTREMITY VENOUS DOPPLER CLINICAL HISTORY: History of DVT. COMPARISON STUDY: None available at time of interpretation. TECHNIQUE: Sonography of the deep venous system of the bilateral lower extre mities was performed. Compression and augmentation were evaluated. FINDINGS: Right common femoral and superficial femoral veins are patent. There is no thrombus within these vessels. Note is made of deep venous thrombus within the right popliteal, posterior tibial and peroneal veins. There is no deep venous thrombus within the left lower extremity. IMPRESSION: 1. Deep venous thrombus within the right popliteal, posterior tibial and peroneal veins. 2. No deep venous thrombus within the left lower extremity. ACT 112: Negative or not required by law. Electronically signed by: Cordell Alcala M.D. 04/05/2022 12:12 PM Chest X-Ray 04/05/22 10:20 XR chest 1V portable HISTORY: 56 years-old Male worsened cough, r/o pleural effusion acute cough COMPARISON: Chest radiograph April 04, 2022 TECHNIQUE: AP view of the chest FINDINGS: Cardiomediastinal and hilar silhouettes are within normal limits. There is no pneumothorax, pleural effusion or overt pulmonary edema. Linear left basilar opacity is new from prior. Degenerative changes of the shoulders and spine. IMPRESSION: Mild left basilar atelectasis with otherwise unremarkable exam. ACT 112: Negative or not required by law. The above report was generated using voice recognition software. It may contain grammatical, syntax or spelling errors. Electronically signed by: Cristofer Jones M.D. 04/05/2022 11:03 AM PG Care Time/CCT Total # of Minutes Spent Total Time Spent with Patient: Total time spent is greater than 50% in coordination of care (as documented) at patient's floor/unit and/or counseling patient: Coding Level of Care Code 46326 INT INP/OBS CARE 2/55MIN Diagnoses Pulmonary emboli I26.99 Chronic coughing R05.3 Sleep apnea G47.30 Asthma J45.909 Comment [id number] follow-up
--- NOTE | 2022-04-08 07:39 | Discharge Summary ---
Date of Service April 08, 2022 Admission HPI Per Admitting Provider 56-year-old male with PMH of dyslipidemia, JOIE, extrinsic asthma, moderate persistent, GERD, kidney stone, generalized osteoarthritis of multiple sites, obesity presented to our ED with complaint of chest pain and shortness of breath since 3 AM in the morning. Chest pain was left-sided and worse with deep breathing. Patient was diagnosed with RLE DVT few days ago and was started on Eliquis since last Tuesday, patient also has history of LLE DVT 2 years ago likely unprovoked for which the patient was on Eliquis for 6 months. He had COVID pneumonia in August and has been having persistent cough since then. Denies feeling of heart racing, acute changes in bowel or bladder habit, fever, headache or dizziness or other review of symptoms. Denies smoking tobacco/alcohol use/recreational drug use Full code Family history positive for blood clots in multiple family members, younger sister with DVT and PE who in January last year, father with postoperative DVT. Medications were reviewed at bedside with the patient. Patient underwent CTA chest, preliminary read CTA CHEST: Prominent left-sided PE involves the interlobar artery with extension into multiple segmental and subsegmental pulmonary artery branches at the left lung base. Left upper lobe segmental branches also involved as well as posterior and the medial segmental and subsegmental branches of the right lung base There is no CT evidence for acute right heart strain Peribronchial cuffing noted Patchy groundglass opacities may reflect microatelectasis related to the bronchial wall thickening versus nonspecific pneumonitis. At the left lung base pulmonary infarct may be present versus atelectasis Small left pleural effusion noted Admission Exam Per Admitting Provider Physical Exam: GENERAL: Alert and oriented x3. NAD, on RA. Obese class I. HEENT: No pallor, no icterus. Pupils equal, round and reactive to light. Oral mucosa moist. NECK: No JVD, no neck masses. HEART: S1 and S2 heard. tachycardia. No murmur, no gallop. RESPIRATORY SYSTEM: Normal AP diameter. No accessory muscle use. No wheezing, no crackles. ABDOMEN: Soft, bowel sounds present, nontender, no distention. CENTRAL NERVOUS SYSTEM: No facial droop. Speech is clear. Obeys simple commands. Moves extremities. EXTREMITIES: No edema, no erythema seen. Principal Diagnosis Acute pulmonary embolism, right leg DVT, controlled asthma Discharge Exam Sitting at the edge of the bed without any acute distress Constitutional well developed, well nourished and + obese; not ill appearing Eyes PERRL, conjunctivae normal, anicteric sclerae ENMT external ear and nose normal, oropharynx normal Neck trachea midline, no thyromegaly Respiratory normal respiratory effort; no respiratory distress Auscultation: lungs clear to auscultation bilaterally and + crackles (Minimal crackles bibasally) Cardiovascular Rate/Rhythm: regular rate and regular rhythm; not tachycardic Heart Sounds: normal S1 and normal S2; no murmur Extremities: no edema Gastrointestinal (Abdomen) Inspection/Auscultation: abdomen normal to inspection and normal bowel sounds; abdomen not distended Percussion/Palpation: abdomen soft; abdomen nontender Neurologic normal touch/pain/proprioception and moves all extremities; no focal motor deficits Psychiatric A+Ox3, euthymic affect Discharge Data Allergies Allergy/AdvReac Type Severity Reaction Status Date / Time No Known Allergies Allergy Verified 12/07/21 01:29 Consultations 04/04/22 05:46 ED Decision to Admit Stat 04/04/22 06:40 Consult Pulmonology Routine 04/04/22 13:53 Consult Hematology Routine Ordered Studies 04/04/22 04:46 CT angio chest PE protocol Urgent 04/05/22 09:28 US venous doppler [facility] Routine Hospital Course (1) Pulmonary emboli: Recent DVT diagnosed this week, was started on apixaban. Was already reporting SOB with exertion but then developed acute pain in left lower chest prompting admission and found to have pulmonary emboli with infarction. Transitioned off heparin to full dose Lovenox per hematology recommendations. We will plan to continue full dose Lovenox for 4 to 6 weeks and follow factor Xa levels in outpatient [facility] clinic. Consult request needs to be sent prior to discharge. He also has a DVT with some post thrombotic syndrome indicated by pain and soreness in the right lower extremity. Clinically much better without any pleuritic chest pain and the right leg pain is diminished Appreciate pulmonary input and recommendation He has been ambulating without any symptoms Will be discharged this afternoon Lovenox 100 mg twice daily will be continued for 4 weeks and then back on Eliquis Refer to [facility] clinic Will need to see occupational therapist as an outpatient (2) Asthma: Chronic controlled. Cont current inhaler therapy and montelukast. No signs and or symptoms of exacerbation (3) Sleep apnea: Feels improved since using CPAP nightly. He will continue using his home machine upon discharge. (4) CAD (coronary artery disease): Coronary calcification noted on imaging. Per patient report he is supposed to take atorvastatin and baby aspirin. Encourage compliance with outpatient provider recommendations. Full Code Dispo-to PCU Total Time Total Time Spent Total Time Spent (In Minutes): 35 minutes Discharge Plan Discharge Items Patient Disposition: Home - Self-Care Reason For Visit: CHEST DISCOMFORT Discharge Diagnosis: Acute pulmonary embolism, right leg DVT, controlled asthma Condition on Discharge: Good Activity: As commented below Activity Comment: Take it easy for the next few days Non-emergency contact: Primary Care Provider Call non-emergency contact if: you have any medication questions and your symptoms worsen Follow-up/Referrals: Norma Nava DO [Primary Care Provider] - 04/12/22 11:20 am (Date & Time 04/12/2022 11:20 AM Provider Norma Nava DO Department [facility] ) Diet: Regular Addtl Attending Provider Instructions: Please take medications as advised Please give appointment with healthcare providers You need to go to [facility] for your anticoagulation Will need to have your factor X checked in [facility] and may be repeat hypercoagulable blood test Recommended to continue with Lovenox for about 4 to 6 weeks and then go back on Eliquis Will need to have hematology appointment as well Pending Studies at Discharge: No Stand-Alone Forms: My [facility] [place], Smoking Cessation Medications and DC Order Prescriptions: New enoxaparin 100 mg/mL Syringe 100 mg subcut Q12H 30 Days Qty: 60 0RF benzonatate 100 mg Capsule 100 mg PO TID PRN (Reason: cough) 10 Days Qty: 30 0RF Continued omeprazole 20 mg capsule,delayed release(DR/EC) 20 mg PO DAILY Advair HFA 230-21 mcg/actuation HFA aerosol inhaler 1 inh INHALATION BID montelukast 10 mg tablet 10 mg PO DAILY albuterol sulfate 90 mcg/actuation HFA aerosol inhaler 2 puff INHALATION BID PRN (Reason: sob) Discontinued Eliquis 5 mg tablet 10 mg PO BID Discharge Orders: Discharge Order (Routine); Ordered 04/07/22 Ordered By: Brandon Hassan Admission Data Admit Date/Time: 04/04/22 06:40 Attending Provider: Brandon Hassan Admit Provider: Mynor Brown Primary Care Provider: Norma Nava Other Providers: Mynor Brown ; Joel Daniels ; Arpan Mc ; Vasiliy Toney ; Ivana Judge ; Manasa Michael ; Roxanna Giron ; Heather Ashley ; Darian May ; Milana Kelley ; Carla Card ; Gaston Carter ; David Warner ; Shaina Green ; [facility]No Attending ; Lorene Dumont Other Interventions: Discharge Summary Assessment (RN) Last Done: 04/07/22 12:40
== END 2022-04-07 13:59 | disposition home or self-care (01) | DRG 176 ==
LOC: ED 04:25 → SUATTDRO 06:40 → EDINP 06:40 → 2S 09:17